=== PATIENT | female | born 1940 | race Caucasian/White ===

== ENCOUNTER → 2016-11-02 | Outpatient (CLI) | payer MEDICARE ==
--- NOTE | 2016-11-03 07:54 | REP ---
Clinical: Right hip pain. Technique: Neutral and frog lateral views of the right hip. Findings: Moderate age-related degenerative changes include joint space narrowing, subtle increased sclerosis to the acetabular roof and contour abnormality along the inferior margin of the acetabulum as well as cortical irregularity involving the greater trochanter. No acute fracture dislocation. No obvious periarticular calcifications. Impression: Moderate age-related arthritic degenerative changes. Signed by Devon Burnham MD 11/02/2016 11:59 A
== END ==
LOC: M ADAMS 11:48
PROVIDERS: ATTEND Physician Assistant Medical
DX: M25.551 Pain in right hip (principal)

== ENCOUNTER → 2017-02-03 | Outpatient (CLI) | payer MEDICARE ==
--- NOTE | 2017-02-03 13:20 | REP ---
Lumbar spine five views: There are no comparisons. There is demineralization. Vertebral body heights are normal. There is mild grade 1 anterolisthesis of L4. There is no spondylolysis. There is degenerative disc disease at every lumbar level. There is a facet osteoarthritis throughout the lumbar spine. The pedicles and sacroiliac articulations are unremarkable. Impression: Demineralization. Multilevel degenerative disc disease. Grade 1 anterolisthesis of L4, likely degenerative. Facet osteoarthritis. Signed by Darrius Asencio MD 02/03/2017 10:12 A
--- NOTE | 2017-02-03 13:20 | REP ---
AP pelvis: Comparison is a right hip series dated 11/02/2016. There is no pelvic fracture. The right and left hip articulations are unremarkable. Sacroiliac articulations are unremarkable. There are pelvic calcifications, nonspecific, phleboliths versus ureteral. The visualized bowel gas pattern is normal. There is degenerative disc disease in the lumbar spine. Impression: Negative AP pelvis. No pelvic or hip fracture. Signed by Darrius Asencio MD 02/03/2017 10:13 A
== END ==
LOC: M ADAMS 08:53
PROVIDERS: ATTEND Nurse Practitioner Family
DX: M25.551 Pain in right hip (principal)

== ENCOUNTER → 2017-08-10 | Outpatient (CLI) | payer MEDICARE, MEDICAID ==
[2017-08-10 12:49] LABS: BASO % 0.5 % (0.0-1.0); EOS # 0.1 10^3/uL (0.0-0.50); EOS % 1.4 % (0.0-3.0); HEMATOCRIT 39.6 % (36.0-47.0); IMMATURE GRANULOCYTE % 0.3 % (0-3.0); LYMPH # 2.5 10^3/uL (1.5-4.5); LYMPH % 28.6 % (24.0-44.0); MEAN CORPUSCULAR HGB CONC 32.8 g/dl (32.0-36.5); MEAN CORPUSCULAR VOLUME 88.2 fl (80.0-96.0); MONO # 0.6 10^3/uL (0.0-0.8); MONO % 6.9 % (0.0-5.0); NEUTROPHILS # 5.4 10^3/uL (1.8-7.7); NEUTROPHILS % 62.3 % (36.0-66.0); PLATELET COUNT, AUTOMATED 236 10^3/uL (150-450); RED BLOOD COUNT 4.49 10^6/uL (4.00-5.40); RED CELL DISTRIBUTION WIDTH 13.5 % (11.5-14.5); WHITE BLOOD COUNT 8.7 10^3/uL (4.0-10.0)
[2017-08-10 13:26] LABS: ANION GAP 8 MEQ/L (8-16); BLOOD UREA NITROGEN 28 MG/DL (7-18); CALCIUM LEVEL 8.6 MG/DL (8.8-10.2); CARBON DIOXIDE LEVEL 29 MEQ/L (21-32); CHLORIDE LEVEL 103 MEQ/L (98-107); CREATININE FOR GFR 1.21 MG/DL (0.55-1.30); GLOMERULAR FILTRATION RATE 46.2 (>39); GLUCOSE, FASTING 119 MG/DL (70-100); POTASSIUM SERUM 4.1 MEQ/L (3.5-5.1); SODIUM LEVEL 140 MEQ/L (136-145)
== END ==
LOC: M LAB 12:00
DX: I65.23 Occlusion and stenosis of bilateral carotid arteries (principal)
CPT/HCPCS: 80048

== ENCOUNTER → 2017-08-17 | Outpatient (CLI) | payer MEDICARE, MEDICAID ==
[~2017-08-17] MED LIST: ISOVUE-370 76% 100ML VIAL (Q9967) As Ordered
== END ==
LOC: M RAD 09:07
DX: I65.23 Occlusion and stenosis of bilateral carotid arteries (principal)
CPT/HCPCS: Q9967

== ENCOUNTER 2017-10-11 08:43 | Inpatient (IN) | payer MEDICARE, MEDICAID ==
[~2017-10-11 08:43] MED LIST changes: +GLYCOPYRROLATE INJ 0.2 MG/ML 2 ML VIAL As Ordered; +HEPARIN SOD (PORCINE) 5000 UNITS/ML VIAL As Ordered; -ISOVUE-370 76% 100ML VIAL (Q9967) As Ordered; +LIDOCAINE 2% INJ 100 MG/5 ML SDV (FOR ANES.) As Ordered; +LIDOCAINE 2% JELLY 30 ML As Ordered; +MIDAZOLAM INJ 2 MG/2 ML VIAL (J2250) As Ordered; +NEOSTIGMINE 10 MG/10 ML VIAL (J2710) As Ordered; +ONDANSETRON 4MG/2ML VIAL (J2405) As Ordered; +PHENYLEPHRINE INJ 10MG/ML VIAL (J2370) As Ordered; +PROPOFOL 200 MG/20 ML VIAL As Ordered; +REMIFENTANIL 1MG 3ML VIAL As Ordered; +ROCURONIUM BROMIDE 50 MG/5 ML VIAL As Ordered; +SUCCINYLCHOLINE 100 MG/5 ML SYRINGE (J0330) As Ordered; +dexameTHASONE 4 MG/ML 1ML VIAL (J1100) As Ordered; +fentaNYL 100 MCG/2 ML INJECTION (J3010) As Ordered
[2017-10-11] MEDS: VITAMIN D 1,000 INTERNATIONAL UNITS TABLET PO (09:00)
[2017-10-11] MEDS: MULTIVITAMINS/MINERALS THERAP 1 TAB PO (09:00)
[2017-10-11 09:15] LABS: HEMATOCRIT 41.2 % (36.0-47.0); HEMOGLOBIN 13.4 g/dl (12.0-15.5); MEAN CORPUSCULAR HEMOGLOBIN 28.6 pg (27.0-33.0); MEAN CORPUSCULAR HGB CONC 32.5 g/dl (32.0-36.5); MEAN CORPUSCULAR VOLUME 87.8 fl (80.0-96.0); PLATELET COUNT, AUTOMATED 251 10^3/uL (150-450); RED BLOOD COUNT 4.69 10^6/uL (4.00-5.40); RED CELL DISTRIBUTION WIDTH 14.2 % (11.5-14.5); WHITE BLOOD COUNT 9.4 10^3/uL (4.0-10.0)
[2017-10-11] MEDS: LR 1,000 ML IV ×2 (09:20→15:00)
[2017-10-11 09:58] LABS: ALBUMIN 3.7 GM/DL (3.2-5.2); ALBUMIN/GLOBULIN RATIO 0.76 (1.00-1.93); ALKALINE PHOSPHATASE 76 U/L (45-117); ALT/SGPT 18 U/L (12-78); ANION GAP 6 MEQ/L (8-16); AST/SGOT 28 U/L (7-37); BILIRUBIN,TOTAL 0.6 MG/DL (0.2-1.0); BLOOD UREA NITROGEN 29 MG/DL (7-18); CALCIUM LEVEL 8.9 MG/DL (8.8-10.2); CARBON DIOXIDE LEVEL 30 MEQ/L (21-32); CHLORIDE LEVEL 103 MEQ/L (98-107); CREATININE FOR GFR 1.26 MG/DL (0.55-1.30); GLUCOSE, FASTING 105 MG/DL (70-100); POTASSIUM SERUM 4.3 MEQ/L (3.5-5.1); SODIUM LEVEL 139 MEQ/L (136-145); TOTAL PROTEIN 8.6 GM/DL (6.4-8.2)
[2017-10-11] MEDS: THROMBIN SOLN 20,000 UNITS KIT As Ordered (12:33)
[2017-10-11] MEDS: HEPARIN SOD (PORCINE) 5000 UNITS/ML VIAL As Ordered ×2 (12:51→14:01)
[2017-10-11] MEDS: GENTAMICIN SULF INJ 80MG/2ML VIAL (J1580) As Ordered (13:56)
[2017-10-11] MEDS: ceFAZolin 1GM INJ (J0690 PER 500MG) As Ordered (13:56)
[2017-10-11] MEDS: LIDOCAINE 1% SDV INJ 30 ML VIAL As Ordered (13:59)
[2017-10-11] MEDS: BUPIVACAINE HCL 0.5% 30 ML VIAL As Ordered (13:59)
[2017-10-11] MEDS ORDERED: MOM 30ML SUSPENSION UDC PO (14:15)
[2017-10-11] MEDS ORDERED: BISACODYL 10 MG SUPP PR (14:15)
[2017-10-11] MEDS ORDERED: ONDANSETRON 4MG/2ML VIAL (J2405) IV ×2 (14:15→15:00)
[2017-10-11] MEDS: CLOPIDOGREL 75 MG TAB PO (14:53)
[2017-10-11] MEDS: ASPIRIN 81 MG ENTERIC TAB PO (14:53)
[2017-10-11] MEDS ORDERED: PERCOCET 5MG/325MG TAB PO (15:00)
[2017-10-11] MEDS ORDERED: fentaNYL 100 MCG/2 ML INJECTION (J3010) IV (15:00)
[2017-10-11] MEDS: ACETAMINOPHEN TAB 650MG DOSE (2X325MG) PO (15:00)
[2017-10-11] MEDS: DOCUSATE SODIUM 100 MG CAP PO (20:58)
[2017-10-11] MEDS: SENOKOT S TAB PO (20:58)
[2017-10-11] MEDS: PRAVASTATIN 20 MG TAB PO (21:01)
[2017-10-11] MEDS: LOSARTAN 50 MG TAB PO (21:01)
[2017-10-12] MEDS: ACETAMINOPHEN TAB 650MG DOSE (2X325MG) PO (00:40)
[2017-10-12] MEDS: CLOPIDOGREL 75 MG TAB PO (08:24)
[2017-10-12] MEDS: VITAMIN D 1,000 INTERNATIONAL UNITS TABLET PO (08:24)
[2017-10-12] MEDS: DOCUSATE SODIUM 100 MG CAP PO (08:24)
[2017-10-12] MEDS: ASPIRIN 81 MG ENTERIC TAB PO (08:24)
[2017-10-12] MEDS: SENOKOT S TAB PO (08:24)
[2017-10-12] MEDS: MULTIVITAMINS/MINERALS THERAP 1 TAB PO (08:24)
== END 2017-10-12 15:40 | disposition home or self-care (01) | DRG 39 ==
LOC: M OR 08:43 → M MS5PR 16:25
PROC: 03CJ0Z6 (ICD-10-PCS; principal; 2017-10-11 10:30)
PROC: 03CL0ZZ Extirpation of Matter from Left Internal Carotid Artery, Open Approach (ICD-10-PCS; 2017-10-11 10:30)
PROC: 03CN0ZZ Extirpation of Matter from Left External Carotid Artery, Open Approach (ICD-10-PCS; 2017-10-11 10:30)
PROC: 03UJ0KZ Supplement Left Common Carotid Artery with Nonautologous Tissue Substitute, Open Approach (ICD-10-PCS; 2017-10-11 10:30)
PROC: 03CY0ZZ Extirpation of Matter from Upper Artery, Open Approach (ICD-10-PCS; 2017-10-11 10:30)
DX: I65.23 Occlusion and stenosis of bilateral carotid arteries (principal); I25.10 Atherosclerotic heart disease of native coronary artery without angina pectoris; E78.00 Pure hypercholesterolemia, unspecified; Z88.8 Allergy status to other drugs, medicaments and biological substances; Z95.5 Presence of coronary angioplasty implant and graft; Z98.51 Tubal ligation status; Z98.41 Cataract extraction status, right eye; Z98.42 Cataract extraction status, left eye; Z87.891 Personal history of nicotine dependence

== ENCOUNTER → 2017-11-09 | Outpatient (CLI) | payer MEDICARE, MEDICAID | LOC: M RAD 16:29 | DX: I65.23 Occlusion and stenosis of bilateral carotid arteries (principal) | CPT/HCPCS: 93880 ==

== ENCOUNTER → 2017-12-07 | Outpatient (CLI) | payer MEDICARE, MEDICAID ==
[2017-12-07 14:23] LABS: BASO # 0.1 10^3/uL (0.0-0.2); BASO % 0.8 % (0.0-1.0); EOS # 0.1 10^3/uL (0.0-0.50); EOS % 1.5 % (0.0-3.0); HEMATOCRIT 38.9 % (36.0-47.0); HEMOGLOBIN 12.6 g/dl (12.0-15.5); IMMATURE GRANULOCYTE % 0.2 % (0-3.0); LYMPH # 2.5 10^3/uL (1.5-4.5); LYMPH % 27.8 % (24.0-44.0); MEAN CORPUSCULAR HEMOGLOBIN 28.8 pg (27.0-33.0); MEAN CORPUSCULAR HGB CONC 32.4 g/dl (32.0-36.5); MEAN CORPUSCULAR VOLUME 88.8 fl (80.0-96.0); MONO # 0.7 10^3/uL (0.0-0.8); MONO % 7.7 % (0.0-5.0); NEUTROPHILS # 5.5 10^3/uL (1.8-7.7); PLATELET COUNT, AUTOMATED 237 10^3/uL (150-450); RED BLOOD COUNT 4.38 10^6/uL (4.00-5.40); WHITE BLOOD COUNT 8.9 10^3/uL (4.0-10.0)
[2017-12-07 14:38] LABS: ANION GAP 5 MEQ/L (8-16); BLOOD UREA NITROGEN 24 MG/DL (7-18); CALCIUM LEVEL 8.6 MG/DL (8.8-10.2); CARBON DIOXIDE LEVEL 30 MEQ/L (21-32); CHLORIDE LEVEL 102 MEQ/L (98-107); GLOMERULAR FILTRATION RATE 46.5 (>39); GLUCOSE, FASTING 90 MG/DL (70-100); POTASSIUM SERUM 4.8 MEQ/L (3.5-5.1); SODIUM LEVEL 137 MEQ/L (136-145)
== END ==
LOC: M LAB 13:17
DX: I65.23 Occlusion and stenosis of bilateral carotid arteries (principal)
CPT/HCPCS: 80048

== ENCOUNTER 2018-01-15 00:10 | Emergency (ER) | payer MEDICARE, MEDICAID | END 2018-01-15 01:22 | disposition home or self-care (01) | LOC: M ED 00:10 | DX: I10 Essential (primary) hypertension (principal); E78.79 Other disorders of bile acid and cholesterol metabolism; Z95.5 Presence of coronary angioplasty implant and graft; Z87.891 Personal history of nicotine dependence; Z79.01 Long term (current) use of anticoagulants; Z79.899 Other long term (current) drug therapy; Z79.82 Long term (current) use of aspirin | CPT/HCPCS: 99284 ==

== ENCOUNTER 2018-02-03 09:45 | Inpatient (IN) | payer MEDICARE, MEDICAID ==
[~2018-02-03 09:45] MED LIST changes: -GLYCOPYRROLATE INJ 0.2 MG/ML 2 ML VIAL As Ordered; -HEPARIN SOD (PORCINE) 5000 UNITS/ML VIAL As Ordered; +LIDOCAINE 1% MDV 20ML VIAL SQ; -LIDOCAINE 2% INJ 100 MG/5 ML SDV (FOR ANES.) As Ordered; -LIDOCAINE 2% JELLY 30 ML As Ordered; -MIDAZOLAM INJ 2 MG/2 ML VIAL (J2250) As Ordered; -NEOSTIGMINE 10 MG/10 ML VIAL (J2710) As Ordered; -ONDANSETRON 4MG/2ML VIAL (J2405) As Ordered; -PHENYLEPHRINE INJ 10MG/ML VIAL (J2370) As Ordered; -PROPOFOL 200 MG/20 ML VIAL As Ordered; -REMIFENTANIL 1MG 3ML VIAL As Ordered; -ROCURONIUM BROMIDE 50 MG/5 ML VIAL As Ordered; -SUCCINYLCHOLINE 100 MG/5 ML SYRINGE (J0330) As Ordered; -dexameTHASONE 4 MG/ML 1ML VIAL (J1100) As Ordered; -fentaNYL 100 MCG/2 ML INJECTION (J3010) As Ordered
[2018-02-03] MEDS: LR 1,000 ML IV ×2 (10:41→19:15)
[2018-02-03] MEDS ORDERED: LIDOCAINE 2% INJ 100 MG/5 ML SDV (FOR ANES.) As Ordered ×2 (12:26)
[2018-02-03] MEDS ORDERED: fentaNYL 100 MCG/2 ML INJECTION (J3010) As Ordered (12:26)
[2018-02-03] MEDS ORDERED: SUGAMMADEX SODIUM 500 MG/5 ML VIAL (BRIDION) As Ordered (12:26)
[2018-02-03] MEDS ORDERED: LABETALOL HCL 100 MG/20 ML VIAL As Ordered (12:26)
[2018-02-03] MEDS ORDERED: ONDANSETRON 4MG/2ML VIAL (J2405) As Ordered (12:26)
[2018-02-03] MEDS ORDERED: ROCURONIUM BROMIDE 50 MG/5 ML VIAL As Ordered (12:26)
[2018-02-03] MEDS ORDERED: MIDAZOLAM INJ 2 MG/2 ML VIAL (J2250) As Ordered (12:26)
[2018-02-03] MEDS ORDERED: PROPOFOL 200 MG/20 ML VIAL As Ordered (12:26)
[2018-02-03] MEDS ORDERED: HEPARIN SOD (PORCINE) 5000 UNITS/ML VIAL As Ordered (16:12)
[2018-02-03] MEDS ORDERED: REMIFENTANIL 1MG 3ML VIAL As Ordered ×2 (16:16)
[2018-02-03] MEDS ORDERED: dexameTHASONE 4 MG/ML 1ML VIAL (J1100) As Ordered ×2 (17:00)
[2018-02-03] MEDS: CLINDAMYCIN 600 MG/50 ML PREMIX BAG As Ordered (17:08)
[2018-02-03] MEDS: THROMBIN SOLN 20,000 UNITS KIT As Ordered (17:08)
[2018-02-03] MEDS ORDERED: ePHEDrine SULFATE 25 MG/5 ML(5MG/ML) SYRINGE As Ordered (17:12)
[2018-02-03] MEDS ORDERED: GLYCOPYRROLATE INJ 0.2 MG/ML 2 ML VIAL As Ordered (17:13)
[2018-02-03] MEDS ORDERED: PHENYLephrine HCL 500 MCG/5 ML (100MCG/ML) SYRINGE (J2370) As Ordered (17:23)
[2018-02-03] MEDS: BUPIVACAINE HCL 0.5% 30 ML VIAL As Ordered (18:30)
[2018-02-03] MEDS: LIDOCAINE 1% SDV INJ 30 ML VIAL As Ordered (18:30)
[2018-02-03] MEDS ORDERED: METOCLOPRAMIDE INJ 10MG/2ML VIAL (J2765) IV (19:15)
[2018-02-03] MEDS ORDERED: ONDANSETRON 4MG/2ML VIAL (J2405) IV (19:15)
[2018-02-03] MEDS ORDERED: MEPERIDINE INJ 25 MG/ML VIAL (J2175) IV (19:15)
[2018-02-03] MEDS ORDERED: PERCOCET 5MG/325MG TAB PO (19:15)
[2018-02-03] MEDS ORDERED: fentaNYL 100 MCG/2 ML INJECTION (J3010) IV (19:15)
[2018-02-03] MEDS ORDERED: MOM 30ML SUSPENSION UDC PO (19:30)
[2018-02-03] MEDS ORDERED: ALBUTEROL 90 MCG/ACT 8GM HFA INHALER INH (19:30)
[2018-02-03] MEDS ORDERED: BISACODYL 10 MG SUPP PR (19:30)
[2018-02-03] MEDS: ONDANSETRON 4MG/2ML VIAL (J2405) IV (22:02)
[2018-02-03] MEDS: NORCO, ANEXSIA 5/325MG TABLET (HYDROcodone/ACETAMINOPHEN) PO (22:24)
[2018-02-03] MEDS: LOSARTAN 50 MG TAB PO (22:28)
[2018-02-03] MEDS: SENOKOT S TAB PO (23:16)
[2018-02-03] MEDS: PRAVASTATIN 20 MG TAB PO (23:16)
[2018-02-03] MEDS: DOCUSATE SODIUM 100 MG CAP PO (23:17)
[2018-02-04] MEDS: SENOKOT S TAB PO ×3 (00:48→20:49)
[2018-02-04] MEDS: DOCUSATE SODIUM 100 MG CAP PO ×3 (00:48→20:49)
[2018-02-04] MEDS: MORPHINE 4 MG/ML 1ML VIAL/SYRINGE (J2270) IV (00:56)
[2018-02-04] MEDS: MULTIVITAMINS/MINERALS THERAP 1 TAB PO (09:36)
[2018-02-04] MEDS: VITAMIN D 1,000 INTERNATIONAL UNITS TABLET PO (09:37)
[2018-02-04] MEDS: CLOPIDOGREL 75 MG TAB PO (09:37)
[2018-02-04] MEDS: ASPIRIN 81 MG ENTERIC TAB PO (09:37)
[2018-02-04] MEDS: NORCO, ANEXSIA 5/325MG TABLET (HYDROcodone/ACETAMINOPHEN) PO ×2 (12:44→20:51)
[2018-02-04] MEDS: cloNIDine 0.1 MG TAB PO ×2 (17:24→18:42)
[2018-02-04] MEDS: PRAVASTATIN 20 MG TAB PO (20:49)
[2018-02-04] MEDS: LOSARTAN 50 MG TAB PO (20:53)
[2018-02-05] MEDS: NORCO, ANEXSIA 5/325MG TABLET (HYDROcodone/ACETAMINOPHEN) PO (00:51)
[2018-02-05] MEDS: VITAMIN D 1,000 INTERNATIONAL UNITS TABLET PO (08:35)
[2018-02-05] MEDS: ASPIRIN 81 MG ENTERIC TAB PO (08:35)
[2018-02-05] MEDS: DOCUSATE SODIUM 100 MG CAP PO (08:36)
[2018-02-05] MEDS: MULTIVITAMINS/MINERALS THERAP 1 TAB PO (08:36)
[2018-02-05] MEDS: SENOKOT S TAB PO (08:36)
[2018-02-05] MEDS: CLOPIDOGREL 75 MG TAB PO (08:36)
== END 2018-02-05 15:24 | disposition home or self-care (01) | DRG 39 ==
LOC: M OR 09:45 → M PCU 19:57
PROC: 03CH0Z6 (ICD-10-PCS; principal; 2018-02-03 12:00)
PROC: 03CM0Z6 (ICD-10-PCS; 2018-02-03 12:00)
PROC: 03CK0Z6 (ICD-10-PCS; 2018-02-03 12:00)
PROC: 03UH0KZ Supplement Right Common Carotid Artery with Nonautologous Tissue Substitute, Open Approach (ICD-10-PCS; 2018-02-03 12:00)
DX: I65.21 Occlusion and stenosis of right carotid artery (principal); I25.10 Atherosclerotic heart disease of native coronary artery without angina pectoris; I10 Essential (primary) hypertension; J30.9 Allergic rhinitis, unspecified; G47.00 Insomnia, unspecified; E78.5 Hyperlipidemia, unspecified; I73.9 Peripheral vascular disease, unspecified; E78.00 Pure hypercholesterolemia, unspecified; M19.90 Unspecified osteoarthritis, unspecified site; J44.9 Chronic obstructive pulmonary disease, unspecified; I08.3 Combined rheumatic disorders of mitral, aortic and tricuspid valves; Z79.82 Long term (current) use of aspirin; Z79.899 Other long term (current) drug therapy; Z88.0 Allergy status to penicillin; Z88.5 Allergy status to narcotic agent; Z87.891 Personal history of nicotine dependence; Z98.62 Peripheral vascular angioplasty status; Z98.51 Tubal ligation status; Z78.0 Asymptomatic menopausal state; Z95.1 Presence of aortocoronary bypass graft

== ENCOUNTER 2018-02-10 21:24 | Emergency (ER) | payer MEDICARE, MEDICAID ==
[2018-02-10 23:17] LABS: BASO # 0.1 10^3/uL (0.0-0.2); BASO % 0.8 % (0.0-1.0); EOS # 0.2 10^3/uL (0.0-0.50); EOS % 1.7 % (0.0-3.0); HEMATOCRIT 33.7 % (36.0-47.0); HEMOGLOBIN 11.1 g/dl (12.0-15.5); IMMATURE GRANULOCYTE % 0.5 % (0-3.0); LYMPH # 2.6 10^3/uL (1.5-4.5); LYMPH % 25.7 % (24.0-44.0); MEAN CORPUSCULAR HEMOGLOBIN 28.8 pg (27.0-33.0); MEAN CORPUSCULAR HGB CONC 32.9 g/dl (32.0-36.5); MEAN CORPUSCULAR VOLUME 87.5 fl (80.0-96.0); MONO % 10.2 % (0.0-5.0); NEUTROPHILS # 6.2 10^3/uL (1.8-7.7); NEUTROPHILS % 61.1 % (36.0-66.0); PLATELET COUNT, AUTOMATED 254 10^3/uL (150-450); RED BLOOD COUNT 3.85 10^6/uL (4.00-5.40); RED CELL DISTRIBUTION WIDTH 14.6 % (11.5-14.5); WHITE BLOOD COUNT 10.2 10^3/uL (4.0-10.0)
[2018-02-10 23:27] LABS: INR 1.05; PROTHROMBIN TIME 13.8 SECONDS (12.1-14.4)
[2018-02-10 23:29] LABS: BEDSIDE GLUCOSE 112 MG/DL (83-110)
[2018-02-10 23:39] LABS: LACTIC ACID SEPSIS PROTOCOL 0.7 MMOL/L (0.4-2.0)
[2018-02-10 23:48] LABS: ANION GAP 8 MEQ/L (8-16); BLOOD UREA NITROGEN 26 MG/DL (7-18); CALCIUM LEVEL 8.9 MG/DL (8.8-10.2); CARBON DIOXIDE LEVEL 28 MEQ/L (21-32); CHLORIDE LEVEL 98 MEQ/L (98-107); CPK CREATINE PHOSPHOKINASE 69 U/L (26-192); CREATININE FOR GFR 1.34 MG/DL (0.55-1.30); GLOMERULAR FILTRATION RATE 40.9 (>39); GLUCOSE, FASTING 115 MG/DL (70-100); MAGNESIUM LEVEL 2.2 MG/DL (1.8-2.4); POTASSIUM SERUM 4.3 MEQ/L (3.5-5.1); SODIUM LEVEL 134 MEQ/L (136-145); TROPONIN I < 0.02 NG/ML (< 0.10)
[2018-02-10 23:54] LABS: CK-MB VALUE MASS < 1.0 NG/ML (<3.6); FREE T4 1.06 NG/DL (0.76-1.46); MB/CK RELATIVE INDEX 1.44 (< OR =4)
== END 2018-02-11 00:16 | disposition home or self-care (01) ==
LOC: M ED 02-11 00:16
DX: I97.618 Postprocedural hemorrhage of a circulatory system organ or structure following other circulatory system procedure (principal); I10 Essential (primary) hypertension; I25.10 Atherosclerotic heart disease of native coronary artery without angina pectoris; J44.9 Chronic obstructive pulmonary disease, unspecified; F17.200 Nicotine dependence, unspecified, uncomplicated
CPT/HCPCS: 93880

== ENCOUNTER → 2018-02-24 | Outpatient (CLI) | payer MEDICARE, MEDICAID | LOC: M RAD 09:32 | DX: I65.23 Occlusion and stenosis of bilateral carotid arteries (principal) | CPT/HCPCS: 93880 ==

== ENCOUNTER → 2018-06-24 | Outpatient (REF) | payer MEDICARE, MEDICAID ==
[~2018-06-24] MED LIST changes: +ASPI1TAB PO; +CALC1TAB21 PO; -LIDOCAINE 1% MDV 20ML VIAL SQ; +LOSA50TA88 PO; +MULT1TAB10 PO; +PLAV1TAB2 PO; +PRAV40TA2 PO; +VENTAER; +VITA100067 PO
== END ==
LOC: M LAB REF 14:17
PROVIDERS: ATTEND Physician Assistant
DX: N39.0 Urinary tract infection, site not specified (principal)

== ENCOUNTER → 2018-12-12 | Outpatient (CLI) | payer MEDICARE ==
[~2018-12-12] MED LIST changes: -ASPI1TAB PO; +ASPI81TA26 PO
--- NOTE | 2018-12-12 15:38 | REP ---
Bilateral lower extremity arterial duplex ultrasound: Right lower extremity: Right brachial artery peak systole: 100 mmHg. Right dorsalis pedis peak systole: 80 ml millimeters of mercury. The right MERCHANDISING MANAGER: Not obtainable MIKAYLA: 0.8 Peak Systolic Phasicity Velocity DIRECTOR OF MANAGED SERVICES the 110 biphasic Profunda 51.1 monophasic SFA prox 111 biphasic SFA mid 56.5 biphasic SFA dist 57.5 biphasic Pop 34 .8 biphasic SHUKRI prox 46.7 monophasic Tib/P tr 42.9 monophasic the MERCHANDISING MANAGER pr -- -- MERCHANDISING MANAGER dst 50.6 biphasic SHUKRI dst -- - Left lower extremity: Left brachial artery peak systole 90 mmHg. Left dorsalis pedis: Unobtainable MERCHANDISING MANAGER colon and not obtainable MIKAYLA: Not obtainable. Peak Systolic Phasicity Velocity DIRECTOR OF MANAGED SERVICES 104 monophasic Profunda -- -- SFA prox 42.3 monophasic SFA mid 46.6 monophasic SFA dist 28.2 monophasic Pop 17.2 monophasic SHUKRI prox 20.0 monophasic Tib/P tr 18.5 at monophasic MERCHANDISING MANAGER pr 13.9 monophasic MERCHANDISING MANAGER dst 15.7 monophasic SHUKRI dst 15.3 monophasic On the right. jennifer is significant atheromatous plaque in the CF eight, profunda and proximal SFA. The distal the proximal and distal profunda is occluded. On the left, they is significant atheromatous plaque in the distal aorta extending into the internal or external iliac arteries and into the common femoral artery and superficial femoral artery. The left profunda artery is occluded. Fatty arrhythmias identified on the Doppler waveforms. Electronically Signed by Darrius Asencio MD 12/12/2018 03:30 P
== END ==
LOC: M RAD 12:24
PROVIDERS: ATTEND Physician Assistant
DX: I73.9 Peripheral vascular disease, unspecified (principal)

== ENCOUNTER → 2019-03-09 | Outpatient (CLI) | payer MEDICARE, OTHER ==
--- NOTE | 2019-03-09 10:06 | REP ---
LUMBOSACRAL SPINE: Five views of the lumbosacral spine performed. There is no compression fracture. No spondylosis is seen. However there is mild anterior spondylolisthesis of L4 on L5 which appears to be due to posterior facet arthropathy. There is moderate diffuse spurring. There is mild to moderate diffuse disc space narrowing with subchondral narrowing with subchondral sclerosis, most significantly at the L2-3 and L5-S1 levels. There is moderate sclerosis and spurring at the posterior facets of L3-4, L4-5, and L5-S1. The posterior elements appear intact. There is slight curvature toward the left. IMPRESSION: Diffuse degenerative changes with no compression fracture. Electronically Signed by Darrius Beltran MD 03/09/2019 06:29 P
== END ==
LOC: M ADAMS 09:11
PROVIDERS: ATTEND Physician Assistant Medical
DX: M51.36 Other intervertebral disc degeneration, lumbar region (principal); M54.5 Low back pain
CPT/HCPCS: 72110; G0463

== ENCOUNTER → 2019-04-11 | Outpatient (REF) | payer MEDICARE, MEDICAID, BC ==
[2019-04-11 20:40] LABS: CALCIUM LEVEL 9.2 MG/DL (8.8-10.2); CREATININE FOR GFR 1.4 MG/DL (0.55-1.30); GLOMERULAR FILTRATION RATE 38.8 (>39); POTASSIUM SERUM 4.6 MEQ/L (3.5-5.1)
== END ==
LOC: M LABDRWAD 19:17
PROVIDERS: ATTEND Internal Medicine Cardiovascular Disease
DX: I10 Essential (primary) hypertension (principal)
CPT/HCPCS: 36415; 80048; G0463

== ENCOUNTER → 2019-04-19 | Outpatient (REF) | payer MEDICARE, BC ==
[2019-04-19 19:43] LABS: BASO # 0.1 10^3/uL (0.0-0.2); EOS # 0.1 10^3/uL (0.0-0.5); EOS % 1.2 % (0.0-3.0); HEMOGLOBIN 12.9 g/dl (12.0-15.5); LYMPH # 2.4 10^3/uL (1.5-5.0); MEAN CORPUSCULAR HEMOGLOBIN 28.7 pg (27.0-33.0); MEAN CORPUSCULAR HGB CONC 33.9 g/dl (32.0-36.5); MEAN CORPUSCULAR VOLUME 84.4 fl (80.0-96.0); MONO # 0.7 10^3/uL (0.0-0.8); MONO % 9.1 % (0.0-5.0); NEUTROPHILS # 4.5 10^3/uL (1.5-8.5); NEUTROPHILS % 57.6 % (36.0-66.0); PLATELET COUNT, AUTOMATED 291 10^3/uL (150-450); WHITE BLOOD COUNT 7.8 10^3/uL (4.0-10.0)
[2019-04-19 20:00] LABS: ALBUMIN 3.9 GM/DL (3.2-5.2); ALT/SGPT 22 U/L (12-78); BILIRUBIN,TOTAL 0.7 MG/DL (0.2-1.0); BLOOD UREA NITROGEN 17 MG/DL (7-18); CALCIUM LEVEL 9.3 MG/DL (8.8-10.2); CARBON DIOXIDE LEVEL 30 MEQ/L (21-32); CHLORIDE LEVEL 80 MEQ/L (98-107); CK-MB VALUE MASS 4.1 NG/ML (<3.6); CPK CREATINE PHOSPHOKINASE 259 U/L (26-192); CREATININE FOR GFR 1.17 MG/DL (0.55-1.30); FREE T4 1.16 NG/DL (0.76-1.46); GLOMERULAR FILTRATION RATE 47.7 (>39); GLUCOSE, FASTING 86 MG/DL (70-100); MB/CK RELATIVE INDEX 1.58 (< OR =4); POTASSIUM SERUM 4.4 MEQ/L (3.5-5.1); SODIUM LEVEL 121 MEQ/L (136-145); TOTAL PROTEIN 8.2 GM/DL (6.4-8.2); TROPONIN I < 0.02 NG/ML (< 0.10)
== END ==
LOC: M SFHCADAM 16:04
PROVIDERS: ATTEND Family Medicine
DX: R63.0 Anorexia (principal); R53.81 Other malaise

== ENCOUNTER → 2019-04-20 | Outpatient (REF) | payer MEDICARE, BC ==
[2019-04-20 16:03] LABS: CALCIUM LEVEL 9.2 MG/DL (8.8-10.2); CREATININE FOR GFR 1.24 MG/DL (0.55-1.30); GLOMERULAR FILTRATION RATE 44.7 (>39)
== END ==
LOC: M SFHCADAM 11:41
PROVIDERS: ATTEND Family Medicine
DX: E87.1 Hypo-osmolality and hyponatremia (principal)

== ENCOUNTER → 2019-04-26 | Outpatient (REF) | payer MEDICARE, BC ==
[2019-04-26 13:01] LABS: CALCIUM LEVEL 9.2 MG/DL (8.8-10.2); CREATININE FOR GFR 1.08 MG/DL (0.55-1.30); GLOMERULAR FILTRATION RATE 52.4 (>39)
== END ==
LOC: M SFHCADAM 09:20
PROVIDERS: ATTEND Family Medicine
DX: E87.1 Hypo-osmolality and hyponatremia (principal)

== ENCOUNTER → 2019-08-15 | Outpatient (REF) | payer MEDICARE ==
[2019-08-15 13:05] LABS: APPEARANCE, URINE CLEAR (CLEAR); BACTERIA, URINE AUTO NEGATIVE (NEGATIVE); BILIRUBIN, URINE AUTO NEGATIVE (NEGATIVE); BLOOD, URINE BLOOD NEGATIVE (NEGATIVE); COLOR, URINE STRAW (YELLOW); GLUCOSE, URINE (UA) AUTO NEGATIVE (NEGATIVE); KETONE, URINE AUTO NEGATIVE (NEGATIVE); LEUKOCYTE ESTERASE, URINE AUTO NEGATIVE (NEGATIVE); NITRITE, URINE AUTO NEGATIVE (NEGATIVE); PROTEIN, URINE AUTO NEGATIVE (NEGATIVE); RBC, URINE AUTO 1 /HPF (0-3); SPECIFIC GRAVITY URINE AUTO 1.006 (1.002-1.035); SQUAMOUS EPITHELIAL CELL UR AU 0 /HPF (0-6); UROBILINOGEN, URINE AUTO 0.2 mg/dL (0.0-2.0); WBC, URINE AUTO 1 /HPF (0-3)
== END ==
LOC: M SFHCADAM 09:07
PROVIDERS: ATTEND Family Medicine
DX: M54.5 Low back pain (principal); R82.998 Other abnormal findings in urine

== ENCOUNTER → 2019-12-27 | Outpatient (REF) | payer MEDICARE | LOC: M SFHCADAM 16:17 | PROVIDERS: ATTEND Family Medicine | DX: R35.0 Frequency of micturition (principal) ==

== ENCOUNTER 2020-01-01 20:50 | Emergency (ER) | payer MEDICARE ==
[~2020-01-01] VITALS: Ht 162.6 cm; Wt 77.1 kg
[2020-01-01] MEDS ORDERED: EZET10TA21 (21:05)
[2020-01-01 22:16] LABS: BASO # 0.1 10^3/uL (0.0-0.2); BASO % 0.6 % (0.0-1.0); EOS # 0.4 10^3/uL (0.0-0.5); EOS % 4.6 % (0.0-3.0); HEMATOCRIT 39.6 % (36.0-47.0); HEMOGLOBIN 12.9 g/dl (12.0-15.5); LYMPH # 2.4 10^3/uL (1.5-5.0); LYMPH % 26.1 % (24.0-44.0); MEAN CORPUSCULAR HEMOGLOBIN 28.7 pg (27.0-33.0); MEAN CORPUSCULAR HGB CONC 32.6 g/dl (32.0-36.5); MONO # 0.9 10^3/uL (0.0-0.8); MONO % 10.3 % (0.0-5.0); NEUTROPHILS # 5.3 10^3/uL (1.5-8.5); PLATELET COUNT, AUTOMATED 311 10^3/uL (150-450); WHITE BLOOD COUNT 9.1 10^3/uL (4.0-10.0)
[2020-01-01 22:27] LABS: INR 1.05; PROTHROMBIN TIME 13.4 SECONDS (11.8-14.0)
[2020-01-01] MEDS: GASTROGRAFIN SOLUTION 30ML PO SCH ×2 (22:33→23:01)
[2020-01-01 22:40] LABS: ALBUMIN 3.5 GM/DL (3.2-5.2); BILIRUBIN,DIRECT 0.1 MG/DL (0.0-0.2); BILIRUBIN,TOTAL 0.3 MG/DL (0.2-1.0); CALCIUM LEVEL 8.8 MG/DL (8.8-10.2); CREATININE FOR GFR 1.18 MG/DL (0.55-1.30); GLOMERULAR FILTRATION RATE 47.2 (>39); POTASSIUM SERUM 4.5 MEQ/L (3.5-5.1); TOTAL PROTEIN 8.5 GM/DL (6.4-8.2)
[2020-01-02] MEDS ORDERED: ISOVUE-370 76% 100ML VIAL As Ordered ONE
--- NOTE | 2020-01-02 00:54 | REPVR ---
PROCEDURE INFORMATION: Exam: CT Abdomen And Pelvis With Contrast Exam date and time: 01/01/2020 10:10 PM Age: 79 years old Clinical indication: Pain; Other: Rectal; Additional info: Rectal pain, rectal bleeding TECHNIQUE: Imaging protocol: Computed tomography of the abdomen and pelvis with intravenous contrast. Radiation optimization: All CT scans at this facility use at least one of these dose optimization techniques: automated exposure control; mA and/or kV adjustment per patient size (includes targeted exams where dose is matched to clinical indication); or iterative reconstruction. Contrast material: ISO; Contrast volume: 100 ml; Contrast route: INTRAVENOUS (IV); Other contrast: Oral, ggraphin, 600; COMPARISON: DX PELVIS COMPLETE 02/03/2017 8:57 AM FINDINGS: Lungs: Interstitial thickening in the lung bases. Liver: Normal. No mass. Gallbladder and bile ducts: Normal. No calcified stones. No ductal dilation. Pancreas: Normal. No ductal dilation. Spleen: Normal. No splenomegaly. Adrenals: Normal. No mass. Kidneys and ureters: Multiple cysts in the kidneys. No solid masses or calculi. No hydronephrosis. Stomach and bowel: There is colonic diverticulosis. There is stranding and edema around an inflamed diverticulum in the lower sigmoid colon. No bowel obstruction. No inflammatory changes elsewhere in the colon. The small bowel is unremarkable. Appendix: No evidence of appendicitis. Intraperitoneal space: No abscess or bowel perforation. Vasculature: Advanced aortoiliac atherosclerotic disease. No aortic aneurysm or dissection. 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 Severe stenosis of the left common iliac artery bifurcation with occlusion of the left internal iliac artery. Lymph nodes: Unremarkable. No enlarged lymph nodes. Bladder: Mild urinary bladder wall thickening suggesting cystitis. No bladder masses or calculi. Reproductive: Unremarkable as visualized. Bones/joints: There are advanced degenerative changes in the spine and pelvis. Soft tissues: Unremarkable. IMPRESSION: 1. Sigmoid diverticulitis. No diverticular abscess, perforation, or bowel obstruction. 2. Urinary bladder wall thickening suggesting cystitis. 3. Interstitial changes in the lung bases may be due to chronic interstitial lung disease or interstitial edema. 4. 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 Electronically signed by: Theron Castano On 01/02/2020 00:53:46 AM
[2020-01-02 01:35] VITALS: BP 148/84
--- NOTE | 2020-01-02 13:13 | ED PDOC ---
Post-Departure Follow-Up conrad ramirez faxed formal report of ct abd/p for fu Tram Bird MD Jan 02, 2020 13:13
== END 2020-01-02 01:49 | disposition home or self-care (01) ==
LOC: M ED 20:50
DX: K62.5 Hemorrhage of anus and rectum (principal); I10 Essential (primary) hypertension; N18.3 Chronic kidney disease, stage 3 (moderate); E78.9 Disorder of lipoprotein metabolism, unspecified; Z95.1 Presence of aortocoronary bypass graft; Z79.899 Other long term (current) drug therapy; Z79.82 Long term (current) use of aspirin; Z79.01 Long term (current) use of anticoagulants; Z88.0 Allergy status to penicillin; Z87.891 Personal history of nicotine dependence
CPT/HCPCS: 74177; 80047; 80048; 80076; 83690; 85025; 85610; 86850; 86900; 86901; 93041; 99284; Q9963; Q9967

== ENCOUNTER 2020-04-15 08:35 | Inpatient (IN) | payer MEDICARE ==
[~2020-04-15] VITALS: Ht 162.6 cm; Wt 72.0 kg
[~2020-04-15 08:35] MED LIST changes: +EZET10TA21
[2020-04-15 09:26] LABS: HEMATOCRIT 38.7 % (36.0-47.0); HEMOGLOBIN 12.3 g/dl (12.0-15.5); MEAN CORPUSCULAR HEMOGLOBIN 27.6 pg (27.0-33.0); MEAN CORPUSCULAR HGB CONC 31.8 g/dl (32.0-36.5); PLATELET COUNT, AUTOMATED 239 10^3/uL (150-450); RED BLOOD COUNT 4.45 10^6/uL (4.00-5.40); WHITE BLOOD COUNT 12.5 10^3/uL (4.0-10.0)
[2020-04-15] MEDS ORDERED: fentaNYL 100 MCG/2 ML INJECTION (J3010) As Ordered ONE ×2 (09:27→11:25)
[2020-04-15] MEDS ORDERED: LIDOCAINE 1% MDV 20ML VIAL As Ordered ONE ×2 (09:28→11:03)
[2020-04-15] MEDS ORDERED: ISOVUE-300 61% 50ML VIAL As Ordered ONE (09:28)
[2020-04-15] MEDS ORDERED: MIDAZOLAM INJ 2MG/2ML VIAL (J2250 PER 1MG) As Ordered ONE ×3 (09:28→13:37)
[2020-04-15 09:54] LABS: CALCIUM LEVEL 8.9 MG/DL (8.8-10.2); CREATININE FOR GFR 1.02 MG/DL (0.55-1.30); GLOMERULAR FILTRATION RATE 55.8 (>39)
[2020-04-15] MEDS ORDERED: VANCOMYCIN 500MG/10ML VIAL As Ordered ONE (11:02)
[2020-04-15] MEDS ORDERED: LIDOCAINE W/EPINEPHRINE 1% 20ML VIAL As Ordered ONE (11:15)
[2020-04-15] MEDS ORDERED: HEPARIN 25,000 UNITS/250 ML D5W BAG (100 UNITS/ML) (J1644 PER 1000UNITS) As Ordered ONE (13:08)
[2020-04-15] MEDS ORDERED: HEPARIN SOD (PORCINE) 5000UNITS/ML 1ML VIAL/SYRINGE As Ordered ONE ×3 (13:08→14:10)
[2020-04-15] MEDS ORDERED: NS 1,000 ML IV SCH (13:21)
[2020-04-15] MEDS ORDERED: fentaNYL 250 MCG/5 ML INJECTION (J3010) As Ordered ONE (13:37)
[2020-04-15] MEDS ORDERED: dexameTHASONE 4 MG/ML 1ML VIAL (J1100 PER 1MG) As Ordered ONE (13:38)
[2020-04-15] MEDS ORDERED: propofoL 200 MG/20 ML VIAL As Ordered ONE ×2 (13:38→19:28)
[2020-04-15] MEDS ORDERED: LIDOCAINE 2% 100MG/5ML SDV (FOR ANES.) As Ordered ONE (13:38)
[2020-04-15] MEDS ORDERED: ROCURONIUM BROMIDE 50 MG/5 ML VIAL As Ordered ONE (13:38)
[2020-04-15] MEDS ORDERED: ONDANSETRON 4MG/2ML VIAL As Ordered ONE (13:38)
[2020-04-15] MEDS ORDERED: HEPARIN SOD (PORCINE) 5000UNITS/ML 1ML VIAL/SYRINGE IV ONE (13:45)
[2020-04-15] MEDS ORDERED: HEPARIN DRIP 25,000 UNITS in IV 1 EA IV SCH ×4 (13:45)
[2020-04-15] MEDS ORDERED: THROMBIN SOLN 5,000 UNITS VIAL As Ordered ONE (14:09)
[2020-04-15] MEDS ORDERED: BUPIVACAINE/EPIN 0.5% 30 ML VIAL As Ordered ONE (14:10)
[2020-04-15] MEDS ORDERED: hydrALAZINE 20MG/ML 1ML VIAL (J0360 PER 20MG) As Ordered ONE (15:22)
[2020-04-15] MEDS ORDERED: hydrALAZINE 20MG/ML 1ML VIAL (J0360 PER 20MG) IV ONE (15:30)
[2020-04-15] MEDS ORDERED: CLINDAMYCIN 600 MG/50 ML PREMIX BAG As Ordered ONE (17:31)
[2020-04-15] MEDS ORDERED: ePHEDrine SULFATE 25 MG/5 ML(5MG/ML) SYRINGE As Ordered ONE (17:38)
[2020-04-15] MEDS ORDERED: PHENYLephrine HCL 500 MCG/5 ML (100MCG/ML) SYRINGE (J2370) As Ordered ONE (17:43)
[2020-04-15] MEDS ORDERED: ACETAMINOPHEN 1000MG 100ML IV BTL (OFIRMEV) (J0131 PER 10MG) As Ordered ONE (18:56)
--- NOTE | 2020-04-15 20:24 | ROOPDOC ---
[facility] Report Of Operation Report of Operation DATE OF PROCEDURE: 04/15/20 PREPROCEDURE DIAGNOSES: Atherosclerosis the [place] arteries with worsening ischemia right lower extremity POSTPROCEDURE DIAGNOSES: Same PROCEDURE: Right femoral endarterectomy with vein patch angioplasty SURGEON: Rosie Chavez MD ANESTHESIA: Monitored anesthesia care and local INDICATION FOR PROCEDURE: Very pleasant 79-year-old patient with severe atherosclerosis of the [place] arteries primarily involving the distal aortic, common iliac arteries, external iliac arteries, common femoral arteries, and proximal superficial femoral arteries bilaterally. She underwent an arteriogram today with attempt to cross the chronic total occlusion in the left iliac system, which was unsuccessful and aborted. We also attempted to stent the right iliac system, but were only able to place proximal balloon expandable stent due to disruption of the balloon requiring a cut down in the right groin to safely remove the balloon and sheath under direct visualization. Following this, in recovery, the patient had diminished PT and DP signals compared to preop. I suspect his potential embolization versus thrombosis of the near occlusive will keep calcified plaque in the femoral vessel after direct repair the arteriotomy. We started a heparin drip postprocedure, no significant improvement was noted. I felt the safest thing is to bring the patient to the operating room and perform a femoral endarterectomy and possible thromboembolectomy if needed. Risks benefits and alternatives were explained to the patient's agreeable to proceed. Informed consent was obtained. REPORT OF OPERATION: Patient was brought the operating room in stable condition. Monitored anesthesia care and antibiotics were administered without complication. Her bilateral groins in the entire right lower extremity were prepped and draped in a sterile fashion. Ioban was placed over the skin. A timeout was performed. Presley from the right groin incision were removed. Local anesthesia was administered to the skin and subcutaneous tissue around the existing incision was extended medial and laterally to allow for greater exposure of the proximal and distal femoral vessels. We then continued to remove the existing fascial suture closure. With good exposure, we were able to sharply dissected out the superficial femoral artery distally to an area beyond the palpable plaque. We also dissected proximally above the circumflex vessels. Vesseloops were placed around the circumflex vessels, a branch off the proximal superficial femoral artery, the superficial femoral artery distally, the profunda, and additional branch of the common femoral artery. 5000 units of heparin was given a lot to circulate. Clamp was secured proximal to the circumflex vessels on the distal external iliac artery proximal to the area of palpable plaque. We then secured the Vesseloops. An arteriotomy was made longitudinally from the proximal SFA to the distal external iliac artery. There was extensive near occlusive calcified plaque along with friable plaque and soft plaque within the artery. It was difficult to find any luminal flow. The plaque at the proximal SFA and the profunda were also nearly occlusive. We began the arduous task of endarterectomized using the entire artery with an arteriotomy. Hep saline was used to irrigate the vessel and all loose intima debris was removed. This took quite a bit time due to the calcified and friable nature of the plaque. Once we were satisfied with the endarterectomy, xenosure patch was selected and used to close the arteriotomy and running fashion with 5-0 Prolene hemostatic suture. Before the final sutures are placed, we flushed inflow and outflow artery. A 3-0 Vijaya balloon was passed distally and upon retrieval no thrombus or debris was noted from the SFA or popliteal artery. We irrigated with heparinized saline. Final sutures are placed with flow restored through the profunda. We then restored flow through the common femoral artery and lastly through the superficial femoral artery. We did not note good flow in the superficial femoral artery. The profunda was widely patent with triphasic flow. We therefore secured at clamp just proximal to the profunda on the common femoral artery. We secured the vessel upon the profunda in the SFA. We made a small arteriotomy in the SFA distal to the patch and found more loose intima and debris. This was removed carefully. A small piece of the remaining patch was used to close the arteriotomy 6-0 Prolene suture. We restored flow and good hemostasis was noted. Now there was a strong pulse in the SFA with a biphasic signal. At this point the foot was warm and pink. Capillary refill was less than 1 second. She had a strong signal at the DP and a weak signal at the PT. We irrigated with copious amounts of saline in the groin. We approximated the deep tissues over the superficial femoral artery with running Vicryl suture. We approximated the femoral sheath with running Vicryl suture. We closed the fascial layers in 3 layers with running Vicryl suture. We approximated the deep dermal layer with interrupted 3-0 Vicryl sutures. We close the skin with skin presley. The incision was cleaned and dried and 4 x 4's and as a final dressing. The patient was then allowed to awaken and taken to recovery in stable condition. She tolerated the procedure and the sedation well. ESTIMATED BLOOD LOSS: Approximately 50 mL. COMPLICATIONS: None. PLAN: We plan to admit the patient to the hospitalist service, for [facility]. We appreciate their assistance with the patient. We'll keep her on bed rest overnight with bathroom privileges, but then activity as tolerated starting in the morning. PT OT prn, but hopefully she will be out of bed to the chair for meals and able to ambulate starting tomorrow. We will plan for discharge Tuesday or depending on her progress. We will keep her on a heparin drip at 1000 units an hour and check a PTT in 6 hours. It can be titrated per protocol. Depending on her perfusion tomorrow, we will decide on her discharge anticoagulation. We appreciate the opportunity to participate in the care of this patient. ROSIE CHAVEZ MD Apr 15, 2020 20:24
[2020-04-15] MEDS ORDERED: LR 1,000 ML IV SCH (20:30)
[2020-04-15] MEDS ORDERED: HYDROMORPHONE HCL 0.5 MG/ 0.5 ML SYRINGE (J1170 PER 1) IV PRN (20:30)
[2020-04-15] MEDS ORDERED: PERCOCET 5MG/325MG TAB PO PRN ×2 (20:30)
[2020-04-15] MEDS ORDERED: HYDROmorphone 2 MG TAB PO PRN (20:30)
[2020-04-15] MEDS ORDERED: oxyCODONE 5MG TAB PO PRN (20:30)
[2020-04-15] MEDS ORDERED: diazePAM 5 MG TAB PO PRN (20:30)
[2020-04-15] MEDS ORDERED: fentaNYL 100 MCG/2 ML INJECTION (J3010) IV PRN (20:30)
[2020-04-15] MEDS ORDERED: ONDANSETRON 4MG/2ML VIAL IV PRN ×2 (20:30)
[2020-04-15] MEDS: HEPARIN DRIP 25,000 UNITS in IV 1 EA IV SCH ×2 (20:31→21:00)
[2020-04-15] MEDS ORDERED: HEPARIN SOD (PORCINE) 5000UNITS/ML 1ML VIAL/SYRINGE IV PRN (20:45)
[2020-04-15 21:00] VITALS: BP 150/62
--- NOTE | 2020-04-15 21:39 | HPEPDOC ---
[facility] Medical History & Physical Date of Admission Apr 15, 2020 Date of Service: Apr 15, 2020 Attending Physician: ZOILA SU MD History and Physical CHIEF COMPLAINT: Medical management of post op right femoral endarterectomy with vein patch angioplasty HISTORY OF PRESENT ILLNESS: Patient is a 79 year old female with severe atherosclerosis of the [place] arteries involving the distal aortic, common iliacs, external iliacs, common femorals, and proximal superficial femoral arteries bilaterally who presented to [facility] for an arteriogram with attempt to cross the total occluded left iliac system. This was unsuccessful. Additionally attempt was made to place balloon stent in the right iliac system. In recovery the patient was noted to have diminished PT and DP pulses compared to preop. Vascular surgery suspected potential embolization vs thrombosis or near occlusion. The patient was taken to the OR for a right femoral endarterectomy. Patient tolerated the surgery well. Hospitalist service was consulted for medical management of the patients chronic medical conditions while hospitalized. PAST MEDICAL HISTORY: 1. Severe atherosclerotic disease of the [place] arteries 2. ACS/ASCVD 3. HTN PAST SURGICAL HISTORY: 1. Triple Bypass 2. Right femoral Endarterectomy 3. Vein stripping SOCIAL HISTORY: Patient lives at home with her son. She is independent of her ADLs. She is a former smoker and quit 20 years ago. She denies any alcohol use. Denies any IV or illicit drug use FAMILY HISTORY: Patient has a family history significant for ACS in her father. Her brother has cancer ALLERGIES: Please see below. REVIEW OF SYSTEMS: CONSTITUTIONAL: Denies fevers, chills, unintentional weight loss of weight gain HEENT: Denies difficulty or pain on swallowing. Denies headache CARDIOVASCULAR: Denies chest pain, pressure. Denies palpitations or feelings of the heart racing RESPIRATORY: Denies shortness of breath. Denies cough. Denies wheezing GASTROINTESTINAL: Denies abdominal pain. Denies diarrhea or constipation. Denies nausea or vomiting GENITOURINARY: Denies dysuria or increased frequency. Denies urgency SKIN: Denies rashes or lesions MUSCULOSKELETAL: Admits to chronic back pain NEUROLOGICAL: Denies changes in gait or balance. Denies changes in speech PSYCHIATRIC: Denies depression or anxiety ENDOCRINE: Denies heat intolerance or cold intolerance HEMATOLOGIC/LYMPHATIC: Denies easy bruising or bleeding. Denies history of DVT or PE HOME MEDICATIONS: Please see below. PHYSICAL EXAMINATION: VITAL SIGNS: Temperature 98, pulse 71, respiratory rate 18, blood pressure 136/63, pulse oximetry 100% on 2L NC GENERAL APPEARANCE: Awake, alert, and oriented. Appears in no acute distress. Lying comfortably in bed HEENT: Atraumatic, normocephalic. Eyes are nonicteric. Trachea is midline. Mucous membranes are pink and moist CARDIOVASCULAR: Normal S1, S2. Regular rate and rhythm. 2/6 systolic ejection murmur. No clicks or rubs LUNGS: Clear vesicular breath sounds bilaterally. No wheezes, rhonchi or rales. Symmetric chest expansion ABDOMEN: Soft, nondistended. Nontender. Normoactive bowel sounds throughout EXTREMITIES: No edema. right groin incision currently bandaged. No overlying palpable hematoma. Pulses present via doppler NEUROLOGICAL: No focal neurological deficits PSYCHIATRIC: Mood and affect appear appropriate LABORATORY DATA: See below. MICROBIOLOGY: Please see below. ASSESSMENT: Patient is a 79 year old female s/p right femoral endarterectomy who is admitted to hospitalist service for management of chronic medical conditions while hospitalized . PLAN: 1. Severe Atherosclerotic Disease of the [place] arteries s/p right femoral end arterectomy -Plan per Dr. George of Vascular Surgery. Patient to remain bed rest tonight with bathroom privileges -Continue Heparin Drip with q6h PTT and titration per protocol -Hold ASA and Plavix -PT/OT -Pain management per Dr. George 2. Hypertension -Currently normotensive likely 2/2 anesthesia -Will monitor BP. Hold losartan for now. 3. Reactive Airway Disease/Asthma -Continue albuterol HFA q4h as needed for SOB 4, DVT Prophylaxis -Patient is currently on heparin drip Vital Signs Vital Signs Date Time Temp Pulse Resp B/P (MAP) Pulse Ox O2 Delivery O2 Flow Rate FiO2 04/15/20 20:32 97.7 72 15 129/60 (83) 99 Nasal Cannula 2 Laboratory Data Labs 24H Laboratory Tests 2 04/15/20 09:15: Nucleated Red Blood Cells % (auto) 0.0, Anion Gap 8, Glomerular Filtration Rate 55.8, Calcium Level 8.9 04/15/20 13:20: Coronavirus (COVID-19)(PCR) NEGATIVE CBC/BMP Laboratory Tests 04/15/20 09:15 Home Medications Scheduled Aspirin (Aspirin EC) 81 Mg Tablet.dr, 81 MG PO DAILY Calcium Carbonate/Vitamin D3 (Calcium 600-Vit D3 200 Tablet) 1 Each Tablet, 1 TAB PO DAILY Cholecalciferol (Vitamin D3) (Vitamin D3) 1,000 Unit Tablet, 2,000 UNITS PO D AILY Clopidogrel Bisulfate (Plavix) 75 Mg Tab, 75 MG PO DAILY Ezetimibe (Zetia) 10 Mg Tablet, 10 MG PO DAILY Losartan Potassium (Losartan Potassium) 100 Mg Tablet, 100 MG PO QHS Multivitamins (Thera M Plus Tablet) 1 Each Tablet, 1 TAB PO DAILY Scheduled PRN Albuterol Sulfate (Proair Hfa) 8.5 Gm Hfa.aer.ad, 2 PUFF INH QID PRN for SHORTNESS OF BREATH Ipratropium [place] (Ipratropium [place]) 30 Ml Nahma, 2 SPRAY NA BID PRN for NASAL CONGESTION Allergies Coded Allergies: Penicillins (Verified Allergy, Unknown, ITCHING BURNING, 01/01/20) A-FIB/CHADSVASC A-FIB History Current/History of A-Fib/PAF?: No GME ATTESTATION GME ATTESTATION My faculty preceptor for this patient encounter was physically present during the encounter and was fully available. All aspects of the patient interview, examination, medical decision making process, and medical care plan development were reviewed and approved by the faculty preceptor. The faculty preceptor is aware and concurs with the plan as stated in the body of this note and will attest to such by his/her cosignature. ATTENDING NOTE I reviewed the note and agree with the findings as documented by with the following additions. We will check her lipids, A1C and start her on a statin. LUIS DANIEL BEVERLY DO Apr 15, 2020 21:39 ZOILA SU MD Apr 16, 2020 06:14
[2020-04-15] MEDS ORDERED: D31000TA2 PO (22:44)
[2020-04-15] MEDS ORDERED: PROAAER10 INH (22:44)
[2020-04-15] MEDS ORDERED: ZETI10TA16 PO (22:44)
[2020-04-15] MEDS ORDERED: CALC-212 PO (22:44)
[2020-04-15] MEDS ORDERED: VITMTA PO (22:44)
[2020-04-15] MEDS ORDERED: LOSA100T50 PO (22:44)
[2020-04-15] MEDS ORDERED: ASPI-161 PO (22:44)
[2020-04-15] MEDS ORDERED: IPRA3SP (23:42)
[2020-04-16] VITALS (7 sets, daily range): BP systolic 138–169; BP diastolic 52–79
[2020-04-16] MEDS: ACETAMINOPHEN TAB 650MG DOSE (2X325MG) PO SCH ×6 (00:35→21:10)
[2020-04-16 06:23] LABS: HEMATOCRIT 33.9 % (36.0-47.0); HEMOGLOBIN 10.8 g/dl (12.0-15.5); MEAN CORPUSCULAR HEMOGLOBIN 27.8 pg (27.0-33.0); MEAN CORPUSCULAR HGB CONC 31.9 g/dl (32.0-36.5); MEAN CORPUSCULAR VOLUME 87.4 fl (80.0-96.0); PLATELET COUNT, AUTOMATED 216 10^3/uL (150-450); RED BLOOD COUNT 3.88 10^6/uL (4.00-5.40); WHITE BLOOD COUNT 9.5 10^3/uL (4.0-10.0)
[2020-04-16 06:43] LABS: BLOOD UREA NITROGEN 11 MG/DL (7-18); CALCIUM LEVEL 8.3 MG/DL (8.8-10.2); CARBON DIOXIDE LEVEL 27 MEQ/L (21-32); CHLORIDE LEVEL 98 MEQ/L (98-107); CREATININE FOR GFR 0.75 MG/DL (0.55-1.30); GLOMERULAR FILTRATION RATE > 60.0 (>39); GLUCOSE, FASTING 100 MG/DL (70-100); POTASSIUM SERUM 4.3 MEQ/L (3.5-5.1); SODIUM LEVEL 130 MEQ/L (136-145)
--- NOTE | 2020-04-16 08:57 | IPNPDOC ---
Text Note Date of Service The patient was seen on 04/16/20. NOTE Vascular Surgery. 79-year-old female with severe atherosclerosis of the [place] arteries primarily involving the distal aortic, common iliac arteries, external iliac arteries, common femoral arteries, and proximal superficial femoral arteries bilaterally. Status post arteriogram as per Dr. Chavez 04/15/20 with attempt to cross the chronic total occlusion in the left iliac system, which was unsuccessful and aborted. Also attempted to stent the right iliac system, but were only able to place proximal balloon expandable stent due to disruption of the balloon requiri ng a cut down in the right groin to safely remove the balloon and sheath under direct visualization. Following this, in recovery, the patient had diminished PT and DP signals compared to preop. Heparin drip was started postprocedure, no significant improvement was noted. Patient was subsequently taken to the operating room 04/15/24 femoral endarterectomy as per Dr. Chavez, the patient is status post right femoral endarterectomy POD1 This morning the patient is sitting up in bed, she states pain is controlled. The feet are warm to touch bilaterally. Monophasic DP/PT pulses noted argelia mo. Groin incision with dressing intact, will leave in place for now since she was in the OR last evening. Hemoglobin 10.8 A.m. PTT pending. Continue with analgesia, continue heparin drip, aspirin 81 mg daily. PT/OT pending. Encouraged protein to help with healing. VS,Fishbone, I+O VS, Fishbone, I+O Laboratory Tests 04/15/20 09:15 04/16/20 06:05 Vital Signs Date Time Temp Pulse Resp B/P (MAP) Pulse Ox O2 Delivery O2 Flow Rate FiO2 04/16/20 06:00 96.7 69 18 158/68 (98) 98 Nasal Cannula 2.0 I&O- Last 24 Hours up to 6 AM 04/16/20 05:59 Intake Total 1160 ml Output Total 850 ml Balance 310 ml Gita Pham Apr 16, 2020 08:57
[2020-04-16] MEDS ORDERED: FLUBLOK(EGG FREE)(QUAD)INFLUENZA VACC 0.5ML SYRINGE 18YRS & OLDER IM ONE (09:00)
[2020-04-16] MEDS: ASPIRIN 81 MG ENTERIC TAB PO SCH (09:20)
[2020-04-16 09:54] LABS: CK-MB VALUE MASS 1.3 NG/ML (<3.6); CPK CREATINE PHOSPHOKINASE 134 U/L (26-192); MB/CK RELATIVE INDEX 0.97 (< OR =4); TROPONIN I < 0.02 NG/ML (< 0.10)
[2020-04-16] MEDS: METOPROLOL TART 12.5 MG PER 1/2 TAB PO SCH ×2 (10:39→21:10)
[2020-04-16] MEDS: HEPARIN DRIP 25,000 UNITS in IV 1 EA IV SCH (16:54)
--- NOTE | 2020-04-16 17:07 | IPNPDOC ---
Text Note Date of Service The patient was seen on 04/16/20. NOTE SUBJECTIVE: Patient is a 79yo female, with a history of atherosclerotic disease, ACS and HTN. The patient presented to the OR yesterday for a L iliac arteriogram. After that procedure failed, they attempted a R iliac balloon stent, which subsequently failed. Patient was then taken for a R femoral endarterectomy. Patient was admitted post-op for observation of bleeding, and the hospitalist was called to manage her chronic medical conditions while an inpatient. There were no events overnight, though the patient states she did not sleep well. She lost weight recently due to a flare of diverticulitis 2m ago, and had some diarrhea constipation at that time. She has not had any constipation or diarrhea since entering the hospital as she was NPO due to her operation. She has chronic sinusitis. Patient notes that she has had headaches post-op, which is highly unusual as she does not usually get headaches. Headaches are well treated with Tylenol. OBJECTIVE: VITALS: See below GENERAL: Patient is not in any acute distress and is sitting comfortably in bed after finishing breakfast. Lips are acyanotic. CV: RRR, S1 and S2 sounds noted. There is a murmur noted at the R 2nd ICS. No S3 or S4 sounds were noted. Capillary refill <2s in fingers, >4 seconds in toes. LUNGS: Lungs are clear to auscultation in all lung iglesias b/l. There were no rales, rubs or rhonchi heard b/l. ABDOMEN: Abdomen is soft, nontender and nondistended. Bowel sounds heard in all four quadrants. EXTREMITIES: There is no edema in the legs. DP pulses are reduced. ASSESSMENT/PLAN: Patient is a 79yo female s/p R femoral endarterectomy, with a history of severe athrosclerotic disease and HTN, who was admited to hospitalist service for management of chronic medical conditions while hospitalized. 1. Atherosclerotic disease -Refer to plan by Dr. George from Vascular Surgery. -Bed rest with bathroom privileges -Stop heparin drip at 20:00, Apr 16, 2020 -Start Eliquis therapy 5mg bid PO at 21:00, Apr 16, 2020. -Continue home ASA 81mg daily PO -Hold Plavix 2. Nonsustained Ventricular Tachycardia, Asymptomatic -EKG showed L bundle branch block with sinus rhythm and frequent PVCs -Troponins were negative -Start Metoprolol 12.5mg bid PO -Repeat EKG -Order Echo 2. HTN -Continue home losartan 3. Reactive Airway Disease -Continue albuterol HFA q4h PRN 4. DVT Prophylaxis -Patient is on heparin drip and will change to Eliquis See 1. Atherosclerotic Disease Disp: Pending clearance from Vascular Surgery VS,Fishbone, I+O VS, Fishbone, I+O Laboratory Tests 04/16/20 06:05 Vital Signs Date Time Temp Pulse Resp B/P (MAP) Pulse Ox O2 Delivery O2 Flow Rate FiO2 04/16/20 14:00 97.4 60 18 143/52 (82) 96 Room Air 04/16/20 06:00 2.0 I&O- Last 24 Hours up to 6 AM 04/16/20 06:00 Intake Total 1160 ml Output Total 850 ml Balance 310 ml GME ATTESTATION GME ATTESTATION My faculty preceptor for this patient encounter was physically present during the encounter and was fully available. All aspects of the patient interview, examination, medical decision making process, and medical care plan development were reviewed and approved by the faculty preceptor. The faculty preceptor is aware and concurs with the plan as stated in the body of this note and will attest to such by his/her cosignature. ATTENDING NOTE Patient was seen and examined by me personally with the residents/ students. I agree with the above assessment and plan KYLE MAURER Apr 16, 2020 17:02 ANGELITO WALTER MD Apr 22, 2020 12:34
[2020-04-16] MEDS: APIXABAN 5 MG TAB (ELIQUIS) PO SCH (21:09)
[2020-04-17] MEDS: ACETAMINOPHEN TAB 650MG DOSE (2X325MG) PO SCH ×4 (00:42→12:24)
[2020-04-17 02:00] VITALS: BP 160/76
[2020-04-17 03:11] LABS: HEMOGLOBIN A1c 5.6 %
[2020-04-17 03:21] LABS: CHOLESTEROL RISK RATIO 2.058 (<5)
[2020-04-17 06:00] VITALS: BP 154/72
[2020-04-17 06:29] LABS: HEMATOCRIT 33.5 % (36.0-47.0); HEMOGLOBIN 10.5 g/dl (12.0-15.5); MEAN CORPUSCULAR HEMOGLOBIN 27.6 pg (27.0-33.0); MEAN CORPUSCULAR HGB CONC 31.3 g/dl (32.0-36.5); MEAN CORPUSCULAR VOLUME 87.9 fl (80.0-96.0); PLATELET COUNT, AUTOMATED 220 10^3/uL (150-450); RED BLOOD COUNT 3.81 10^6/uL (4.00-5.40); WHITE BLOOD COUNT 9.2 10^3/uL (4.0-10.0)
[2020-04-17 06:50] LABS: BLOOD UREA NITROGEN 12 MG/DL (7-18); CALCIUM LEVEL 8.3 MG/DL (8.8-10.2); CARBON DIOXIDE LEVEL 28 MEQ/L (21-32); CHLORIDE LEVEL 99 MEQ/L (98-107); CREATININE FOR GFR 0.85 MG/DL (0.55-1.30); GLOMERULAR FILTRATION RATE > 60.0 (>39); GLUCOSE, FASTING 91 MG/DL (70-100); POTASSIUM SERUM 4.4 MEQ/L (3.5-5.1); SODIUM LEVEL 132 MEQ/L (136-145)
[2020-04-17 08:42] VITALS: BP 154/72
[2020-04-17] MEDS: METOPROLOL TART 12.5 MG PER 1/2 TAB PO SCH (08:42)
[2020-04-17] MEDS: ASPIRIN 81 MG ENTERIC TAB PO SCH (08:44)
[2020-04-17] MEDS: APIXABAN 5 MG TAB (ELIQUIS) PO SCH (08:44)
[2020-04-17] MEDS ORDERED: ATORVASTATIN 20 MG TAB PO SCH (09:00)
[2020-04-17 10:00] VITALS: BP 148/63
[2020-04-17] MEDS ORDERED: METO1TAB87 PO (11:34)
[2020-04-17] MEDS ORDERED: ATOR1TAB21 PO (11:34)
[2020-04-17] MEDS ORDERED: ELIQ5TAB PO (11:34)
--- NOTE | 2020-04-17 13:55 | IPNPDOC ---
Text Note Date of Service The patient was seen on 04/17/20. NOTE Vascular Surgery. 79-year-old female with severe atherosclerosis of the [place] arteries primarily involving the distal aortic, common iliac arteries, external iliac arteries, common femoral arteries, and proximal superficial femoral arteries bilaterally. Status post arteriogram as per Dr. Chavez 04/15/20 with attempt to cross the chronic total occlusion in the left iliac system, which was unsuccessful and aborted. Also attempted to stent the right iliac system, but were only able to place proximal balloon expandable stent due to disruption of the balloon requiri ng a cut down in the right groin to safely remove the balloon and sheath under direct visualization. Following this, in recovery, the patient had diminished PT and DP signals compared to preop. Heparin drip was started postprocedure, no significant improvement was noted. Patient was subsequently taken to the operating room 04/15/24 femoral endarterectomy as per Dr. Chavez, the patient is status post right femoral endarterectomy POD2 This morning the patient is sitting in chair, she states pain is controlled. Anxious for discharge The feet are warm to touch bilaterally. Monophasic DP/PT pulses noted bilaterally. Groin incision with pupils intact, the wound is thoroughly cleaned, dry dressing is reapplied. Continue Lipitor, Eliquis, aspirin. Tentative plan for discharge today Encouraged protein to help with healing. Plan for follow-up in the office next week to recheck the patient's groin wound. Plan for staple removal and 17-21 days. We have reviewed wound care with the patient. Advised the patient to shower daily, pat dry with a clean towel, continue to keep the wound clean and dry, apply dry dressing and paper tape daily. VS,Fishbone, I+O VS, Fishbone, I+O Laboratory Tests 04/17/20 06:06 Vital Signs Date Time Temp Pulse Resp B/P (MAP) Pulse Ox O2 Delivery O2 Flow Rate FiO2 04/17/20 10:00 97.5 57 15 148/63 (91) 95 Room Air 04/16/20 06:00 2.0 I&O- Last 24 Hours up to 6 AM 04/17/20 06:00 Intake Total 1584 ml Output Total 1350 ml Balance 234 ml Gita Pham Apr 17, 2020 13:55
--- NOTE | 2020-04-17 14:27 | DS.PDOC ---
Discharge Summary General Date of Admission Apr 15, 2020 at 21:14 Date of Discharge Apr 17, 2020 Attending Physician: ANGELITO WALTER MD Specialist/Consultants Involve: MARIO MEIER MD Discharge Summary PROCEDURES PERFORMED DURING STAY: R Femoral Endarterectomy, R femoral balloon stent (attempted), L iliac arteriogram (attempted) ADMITTING DIAGNOSES: 1. Severe atherosclerotic disease of the [place] arteries 2. ACS/ASCVD 3. HTN 4. Risk for thrombosis DISCHARGE DIAGNOSES: 1. Severe atherosclerotic disease of the [place] arteries 2. ACS/ASCVD 3. HTN 4. Ventricular Tachycardia COMPLICATIONS/CHIEF COMPLAINT: Atherosclerosis. HISTORY OF PRESENT ILLNESS: The patient is a 79yo female who has a history of severe atherosclerosis of [place] arteries, including the the distal aortic, common iliacs, external iliacs, common femorals, and proximal superficial femoral arteries bilaterally. The patient presented to the hospital on Apr 15 for evaluation of [place] arteries with an arteriogram. The initial attempt to cross the L iliac artery failed, so a R iliac balloon stent was attempted. In recovery the patients DP and PT pulses were decreased on the R side compared to preop, and Vascular Surgery suspected an embolus or a thrombus near the occlu tanvi. A heparin drip was started post operation, with no improvement noted. A R femoral endarterectomy with vein patch angiography was preformed. The patient was admitted and he hospitalist team was called for post-operation management and management of her chronic medical conditions while in the hospital. HOSPITAL COURSE: The patient was admitted to the hospital and kept on a heparin drip for the first day of her stay. The patient was kept on continuous telemetry throughout her stay, which showed several episodes on non-sustained ventricular tachycardia. She was asymptomatic during these episodes. Cardiac markers were ordered and were negative, and repeat EKG showed L Bundle branch block. An echocardiogram was ordered, but the reading is pending. The patient was prescribed metoprolol, 12.5mg BID PO for management of cardiac rhythm, which needs to be checked up with her regular combination presser as outpatient. The hepatin drip was stopped the evening of Apr 15, and she was switched to Eliquis for her DVT prophylaxis. She remained largely asymptomatic through her stay except for mild headaches well treated with Tylenol. Her APPT was elevated to 92 at admission, and 42 the day of discharge. Guidance fluoroscopy is pending. Pathology report for her endarterectomy is pending. She had not passed a bowel movement during her stay, but she was not tender, and had eaten very little before and during her stay. Her capillary refill in her toes improved, and her ventricular tachycardia improved. The patient was cleared by Vascular Surgery and cleared for discharge on Apr 17, 2020. DISCHARGE MEDICATIONS: Please see below. ALLERGIES: Please see below. PHYSICAL EXAMINATION ON DISCHARGE: VITAL SIGNS: Please see below. GENERAL: Patient is a pleasant woman sitting comfortably in her chair. She is alert and oriented. HEENT: Eyes are PERRLA, lips are acyanotic and conjunctiva is pink. CARDIOVASCULAR EXAMINATION: RRR, S1 and S2 sounds heard. A murmur is heard at the Right 2nd ICS. Capillary refill <2s in the fingers and 3-5s in the toes. The radial pulses are equal, but the R PT/DP pulse is reduced compared to the L. RESPIRATORY EXAMINATION: Lungs are clear to auscultation in all lung iglesias. No wheezes, rubs, rales or rhonchi are noted. ABDOMINAL EXAMINATION: Abdomen is nontender, soft and nondistended. EXTREMITIES: No edema is noted in the legs. LABORATORY DATA: Please see below. IMAGING: Echocardiogram, Apr 16, 2020. PENDING PROGNOSIS: Good ACTIVITY: As tolerated. DISPOSITION: 01 Home, Self-Care. DISCHARGE INSTRUCTIONS: 1. See surgeon in 1 week for checkup of incision 2. Shower daily without dressing. Pat dry with clean towel. Apply dry gauze and paper tape R groin. 3. No lifting >5lbs for 2 weeks 4. No strenuous exorcize for 2 weeks ITEMS TO FOLLOWUP ON ON OUTPATIENT: 1. Followup with Dr. Barros in 1 week for evaluation of incision 2. Consult combination presser for heart block, murmur and ventricular tachycardia. DISCHARGE CONDITION: Stable. TIME SPENT ON DISCHARGE: Greater than 30 minutes. Vital Signs/I&Os Vital Signs Date Time Temp Pulse Resp B/P (MAP) Pulse Ox O2 Delivery O2 Flow Rate FiO2 04/17/20 10:00 97.5 57 15 148/63 (91) 95 Room Air 04/16/20 06:00 2.0 I&O- Last 24 Hours up to 6 AM 04/17/20 06:00 Intake Total 1584 ml Output Total 1350 ml Balance 234 ml Laboratory Data Labs 24H Laboratory Tests 2 04/17/20 02:34: Estimated Mean Plasma Glucose 114H, Hemoglobin A1c 5.6, Triglycerides Level 84, Total Cholesterol 105, LDL Cholesterol 37, Non-HDL Cholesterol (LDL + VLDL) 54, Total HDL Cholesterol 51, Cholesterol/HDL Ratio 2.058 04/17/20 06:06: Nucleated Red Blood Cells % (auto) 0.0, Activated Partial Thromboplast Time 42.1H, Anion Gap 5L, Glomerular Filtration Rate > 60.0, Calcium Level 8.3L CBC/BMP Laboratory Tests 04/17/20 06:06 Discharge Medications Scheduled Apixaban (Eliquis) 5 Mg Tablet, 5 MG PO BID Aspirin (Aspirin EC) 81 Mg Tablet.dr, 81 MG PO DAILY, (Reported) Atorvastatin Calcium (Atorvastatin Calcium) 20 Mg Tablet, 20 MG PO DAILY Calcium Carbonate/Vitamin D3 (Calcium 600-Vit D3 200 Tablet) 1 Each Tablet, 1 TAB PO DAILY, (Reported) Cholecalciferol (Vitamin D3) (Vitamin D3) 1,000 Unit Tablet, 2,000 UNITS PO DAILY, (Reported) Ezetimibe (Zetia) 10 Mg Tablet, 10 MG PO DAILY, (Reported) Losartan Potassium (Losartan Potassium) 100 Mg Tablet, 100 MG PO QHS, (Reported) Metoprolol Tartrate (Metoprolol Tartrate) 25 Mg Tablet, 12.5 MG PO BID Multivitamins (Thera M Plus Tablet) 1 Each Tablet, 1 TAB PO DAILY, (Reported) Scheduled PRN Albuterol Sulfate (Proair Hfa) 8.5 Gm Hfa.aer.ad, 2 PUFF INH QID PRN for SHORTNESS OF BREATH, (Reported) Ipratropium [place] (Ipratropium [place]) 30 Ml [place], 2 SPRAY NA BID PRN for NASAL CONGESTION, (Reported) Allergies Coded Allergies: Penicillins (Verified Allergy, Unknown, ITCHING BURNING, 01/01/20) GME ATTESTATION GME ATTESTATION My faculty preceptor for this patient encounter was physically present during the encounter and was fully available. All aspects of the patient interview, examination, medical decision making process, and medical care plan development were reviewed and approved by the faculty preceptor. The faculty preceptor is aw are and concurs with the plan as stated in the body of this note and will attest to such by his/her cosignature. ATTENDING NOTE Patient was seen and examined by me personally with the residents/ students. I agree with the above assessment and plan KYLE MAURER Apr 17, 2020 13:27 ANGELITO WALTER MD Apr 22, 2020 12:36
--- NOTE | 2020-04-18 09:03 | ECGEPIP ---
[facility] Test Date: 2020-04-16 Pat Name: TERESA ALVARES Department: Room: [place] [address] Gender: Female Director Title: TUNG : 1940 Requested By: KAYLEE REYNOLDS Order Number: [id number] Reading MD: Ricardo Cali Measurements Intervals Peterson Rate: 78 P: 67 UT: 197 QRS: -58 QRSD: 146 T: 119 QT: 434 QTc: 495 Interpretive Statements SINUS RHYTHM WITH FREQUENT SUPRAVENTRICULAR PREMATURE COMPLEXES Including a 4-beat atrial run with LEFT BUNDLE BRANCH BLOCK abberancy, Poor R wave p progression, MARKED LEFT AXIS DEVIATION, Nonspecific ST-T abnormalities. Electronically Signed on 04-18-2020 9:03:21 EDT by Ricardo Cali
--- NOTE | 2020-04-18 10:45 | ECHO ---
DATE OF PROCEDURE: 04/16/2020 Age: 79 Gender: Female REFERRING PHYSICIAN: Dr. Whitaker. PATIENT LOCATION: Room 4233. REASON FOR STUDY: Abnormal EKG. 2D MEASUREMENTS: IVS 0.75 cm LV 5.2 cm LVPW 1.3 cm LA 3.7 cm Aorta 2.6 cm IVC 2.1 cm DOPPLER MEASUREMENT Peak velocity across the aortic valve 2.0 m/s Peak velocity across the LVOT 0.89 m/s Peak gradient across the aortic valve 16 mmHg Mean gradient across the aortic valve 7 mmHg Mitral E 1.3 Mitral A 0.87 with a ratio of 1.5 Maximum tricuspid valve velocity 3.3 m/s 2D COMMENTS: 1. Normal left ventricular size with probably mildly increased left ventricular wall thickness, but the left ventricular systolic function is mildly depressed with left ventricular ejection fraction (LVEF) estimated at 45% to 50%. 2. Normal left atrium. The right atrium appeared to be enlarged. Normal ventricle. 3. The atrial septum appeared to be normal without evidence of defect or shunt. 4. Normal aortic root. 5. No pericardial effusion seen. 6. Mildly calcified aortic valve with minimally restricted leaflet motion. Moderately calcified mitral annulus with normal anterior mitral valve leaflet motion. Normal tricuspid valve and pulmonic valve. The proximal pulmonary artery branches were not well visualized. 7. The inferior vena cava was mildly dilated. Central venous pressure mildly elevated. Doppler detects mild aortic regurgitation, moderate mitral regurgitation, moderate tricuspid regurgitation, and trace pulmonary regurgitation. The calculated pulmonary artery systolic pressure varies between 40 to 50 mmHg. Assessment of the left ventricular diastolic function appeared to be normal. IMPRESSION: 1. Probably mildly depressed global left ventricular systolic function, left ventricular ejection fraction (LVEF) is estimated at 45% to 50%. 2. Aortic valve sclerosis with mild aortic regurgitation and probably mild aortic stenosis. 3. Mitral annulus calcification with moderate mitral regurgitation. 4. Moderate tricuspid regurgitation. Moderate pulmonary hypertension. 5. There are findings consistent with elevated central venous pressure. The inferior vena cava was mildly enlarged. 6. Not mentioned above, there was a tiny color flow jet at the level of the fossa ovalis that could represent a patent foramen ovale (PFO). MTDD
== END 2020-04-17 13:02 | disposition home or self-care (01) | DRG 253 ==
LOC: M IRPRO 08:35 → M MSPAV 21:14
PROVIDERS: ADMIT Internal Medicine; ATTEND Internal Medicine
PROC: 04UK0KZ Supplement Right Femoral Artery with Nonautologous Tissue Substitute, Open Approach (ICD-10-PCS; 2020-04-15)
PROC: 04CK0ZZ Extirpation of Matter from Right Femoral Artery, Open Approach (ICD-10-PCS; principal; 2020-04-15 09:30)
DX: I70.221 Atherosclerosis of native arteries of extremities with rest pain, right leg (principal); I47.2 Ventricular tachycardia; Z79.899 Other long term (current) drug therapy; I10 Essential (primary) hypertension; Z79.82 Long term (current) use of aspirin; Z88.0 Allergy status to penicillin; J45.909 Unspecified asthma, uncomplicated

== ENCOUNTER → 2020-04-25 | Outpatient (CLI) | payer MEDICARE ==
[~2020-04-25] MED LIST changes: +ASPI-161 PO; +ATOR1TAB21 PO; +CALC-212 PO; +D31000TA2 PO; +ELIQ5TAB PO; +IPRA3SP; +LOSA100T50 PO; +METO1TAB87 PO; +PROAAER10 INH; +VITMTA PO; +ZETI10TA16 PO
--- NOTE | 2020-04-25 15:34 | REP ---
INDICATION: ATHEROSCLEROSIS, OCCLUSION/STENOSIS COMPARISON: 12/12/2018. TECHNIQUE: Real time beltran scale and Duplex Doppler evaluation of the bilateral lower extremity arterial vasculature using linear high frequency transducer. FINDINGS: Beltran scale and duplex doppler images demonstrate moderate scattered plaquing in the right lower extremity arterial structures. Diffuse biphasic waveforms are seen except for monophasic waveform in the right profunda and posterior tibial artery. Trickle flow is seen in the distal posterior tibial artery. On the left there is severe plaquing with significant focal plaque at the origin of the left superficial femoral artery. There are diffuse monophasic waveforms throughout the left lower extremity. Peak systolic velocities (cm/sec) Common iliac artery: Right 81.8 ; left 72.3 External iliac artery: Right 190.9; left 58.9 Common femoral artery: Right 199; Left 58 Profunda femoris: Right 58; Left 41 SFA (proximal): Right 146; Left 48 SFA (mid): Right 47; Left 40 SFA (distal): Right 49; Left 29 Popliteal artery: Right 46; Left 27 SHUKRI (prox.): Right 38; Left 13 Tibioperoneal trunk: Right 48; Left 23 RELIEF SALESPERSON (prox.): Right 48; Left 17 RELIEF SALESPERSON (distal): Right 18; Left 25 SHUKRI (distal): Right 44; Left 19 IMPRESSION: Atheromatous changes with areas of narrowing as above. <Electronically signed by Darrius Beltran > 04/25/20 [id number]
--- NOTE | 2020-04-25 16:14 | REP ---
INDICATION: ATHEROSCLEROSIS, OCCLUSION/STENOSIS COMPARISON: 11/29/2018. TECHNIQUE: Real-time ultrasound evaluation and duplex Doppler interrogation of the extracranial carotid vasculature is performed. FINDINGS: There is mild plaquing and narrowing in both carotid bulbs extending into the internal and external carotid arteries. Luminal narrowing is less than 50% on the right. On the left there is elevated peak systolic velocity in the carotid bulb and internal carotid artery with visual narrowing. There is elevated ICA to CCA ratio. Findings are most compatible with stenosis at that location 50-69%. The vertebral arteries demonstrate normal direction of flow. RIGHT LEFT Peak systolic velocity ICA 86.9 cm/s 184.7 cm/s End diastolic velocity ICA 22.6 cm/s 33.3 cm/s Peak systolic velocity CCA 64.3 cm/s 65.8cm/s Peak systolic velocity ECA 63.8 cm/s 84.6 cm/s ICA/CCA ratio 20.29 2.31 IMPRESSION: Luminal narrowing is less than 50% on the right. On the left there is elevated peak systolic velocity in the carotid bulb and internal carotid artery with visual narrowing. There is elevated ICA to CCA ratio. Findings are most compatible with stenosis at that location 50-69%. <Electronically signed by Darrius Beltran > 04/25/20 [id number]
== END ==
LOC: M RAD 13:05
PROVIDERS: ATTEND Physician Assistant
DX: I65.23 Occlusion and stenosis of bilateral carotid arteries (principal); I70.213 Atherosclerosis of native arteries of extremities with intermittent claudication, bilateral legs; I72.3 Aneurysm of iliac artery; Z95.1 Presence of aortocoronary bypass graft

== ENCOUNTER → 2021-02-02 | Outpatient (CLI) | payer MEDICARE ==
--- NOTE | 2021-02-02 15:07 | REP ---
INDICATION: PAIN. COMPARISON: 03/09/2019 TECHNIQUE: Five views FINDINGS: There is marginal osteophytosis bilaterally again right greater than left status quo. There is disc space narrowing at every level status quo. There is a grade 1 L4 upon L5 spondylolisthesis status quo. Heavy degenerative facet joint changes are again seen bilaterally at every level particularly L4-5 and L5-S1 status quo. There is no significant change in appearance of vertebral body height or alignment. The bones are demineralized. There is anterior lipping at every level. Since the last exam, a right common iliac artery stent has been placed. IMPRESSION: Chronic changes as described above. <Electronically signed by Fawad Bowen > 02/02/21 [id number]
== END ==
LOC: M WUC 12:07
PROVIDERS: ATTEND Physician Assistant Medical
DX: M51.36 Other intervertebral disc degeneration, lumbar region (principal)

== ENCOUNTER → 2021-02-11 | Outpatient (REF) | payer MEDICARE ==
[2021-02-11 12:05] LABS: BACTERIA, URINE AUTO NEGATIVE (NEGATIVE); MUCUS, URINE SMALL (NEGATIVE); RBC, URINE AUTO TNTC /HPF (0-3); SQUAMOUS EPITHELIAL CELL UR AU 1 /HPF (0-6); WBC, URINE AUTO 19 /HPF (0-3)
== END ==
LOC: M LAB REF 11:29
PROVIDERS: ATTEND Registered Nurse
DX: R31.9 Hematuria, unspecified (principal); N39.0 Urinary tract infection, site not specified

== ENCOUNTER → 2021-02-20 | Outpatient (CLI) | payer MEDICARE ==
[~2021-02-20] MED LIST changes: +BACT800T5 PO; +HYDR-3713 PO; +OXYB5TAB10 PO; +PYRI1TAB5 PO
[2021-02-20 13:33] LABS: HEMATOCRIT 28.6 % (36.0-47.0); HEMOGLOBIN 8.4 g/dl (12.0-15.5); MEAN CORPUSCULAR HEMOGLOBIN 24.3 pg (27.0-33.0); MEAN CORPUSCULAR HGB CONC 29.4 g/dl (32.0-36.5); MEAN CORPUSCULAR VOLUME 82.7 fl (80.0-96.0); PLATELET COUNT, AUTOMATED 269 10^3/uL (150-450); RED BLOOD COUNT 3.46 10^6/uL (4.00-5.40); WHITE BLOOD COUNT 12.5 10^3/uL (4.0-10.0)
[2021-02-20 13:44] LABS: INR 1.4; PROTHROMBIN TIME 17.6 SECONDS (12.7-14.5)
[2021-02-20 13:45] LABS: PARTIAL THROMBOPLASTIN TIME 36.8 SECONDS (25.9-37.0)
[2021-02-20 13:58] LABS: CALCIUM LEVEL 8.5 MG/DL (8.8-10.2); CREATININE FOR GFR 1.06 MG/DL (0.55-1.30); GLOMERULAR FILTRATION RATE 53.2 (>39); POTASSIUM SERUM 4.9 MEQ/L (3.5-5.1)
[2021-02-20 14:03] LABS: HYALINE CAST, URINE NONE SEEN /lpf (0-1); RBC, URINE TNTC /hpf (0-3); SQUAMOUS EPITHELIAL CELL URINE SMALL AMOUNT /hpf (SMALL AMT)
[2021-02-20 14:04] LABS: BACTERIA, URINE SMALL AMOUNT
== END ==
LOC: M PLALAB 09:17
PROVIDERS: ATTEND Specialist
DX: R31.0 Gross hematuria (principal)
CPT/HCPCS: 36415; 51798; 80048; 85027; 85610; 85730; 87086; G0463

== ENCOUNTER 2021-02-25 14:18 | Outpatient (CLI) | payer MEDICARE ==
[2021-02-25] VITALS (12 sets, daily range): BP systolic 127–182; BP diastolic 45–91
[~2021-02-25] VITALS: Ht 157.5 cm; Wt 71.4 kg
== END 2021-02-25 23:40 | disposition home or self-care (01) ==
LOC: M INFU 14:18
PROVIDERS: ATTEND Specialist
DX: D50.0 Iron deficiency anemia secondary to blood loss (chronic) (principal); R31.0 Gross hematuria; Z88.0 Allergy status to penicillin
CPT/HCPCS: 36430; 86850; 86900; 86901; 86920; P9016

== ENCOUNTER → 2021-02-25 | Outpatient (CLI) | payer MEDICARE ==
[~2021-02-25] MED LIST changes: -BACT800T5 PO; -HYDR-3713 PO; -OXYB5TAB10 PO; -PYRI1TAB5 PO
[2021-02-25 11:00] LABS: HEMATOCRIT 26.6 % (36.0-47.0); HEMOGLOBIN 7.9 g/dl (12.0-15.5)
== END ==
LOC: M LAB 09:59
PROVIDERS: ATTEND Specialist
DX: R31.0 Gross hematuria (principal)

== ENCOUNTER → 2021-02-27 | Outpatient (REF) | payer MEDICARE ==
[2021-02-27 13:00] LABS: HEMATOCRIT 33.6 % (36.0-47.0); HEMOGLOBIN 10.1 g/dl (12.0-15.5); MEAN CORPUSCULAR HEMOGLOBIN 24.9 pg (27.0-33.0); MEAN CORPUSCULAR HGB CONC 30.1 g/dl (32.0-36.5); MEAN CORPUSCULAR VOLUME 82.8 fl (80.0-96.0); PLATELET COUNT, AUTOMATED 246 10^3/uL (150-450); RED BLOOD COUNT 4.06 10^6/uL (4.00-5.40)
== END ==
LOC: M SFHCADAM 09:26
PROVIDERS: ATTEND Family Medicine
DX: D64.9 Anemia, unspecified (principal)

== ENCOUNTER → 2021-03-02 | Outpatient (REF) | payer MEDICARE ==
[2021-03-02 12:37] LABS: HEMOGLOBIN 9.9 g/dl (12.0-15.5)
== END ==
LOC: M SFHCADAM 08:22
PROVIDERS: ATTEND Family Medicine
DX: D64.9 Anemia, unspecified (principal)

== ENCOUNTER → 2021-03-02 | Outpatient (CLI) | payer MEDICARE ==
[~2021-03-02] MED LIST changes: +ISOVUE-370 76% 100ML VIAL As Ordered ONE
--- NOTE | 2021-03-02 17:21 | REP ---
INDICATION: GROSS HEMATURIA. COMPARISON: 01/02/2020 TECHNIQUE: Standard helical technique before and after the administration of intravenous contrast. 100 cc Isovue 370 was administered. FINDINGS: There are chronic lung base changes status quo The liver, spleen, pancreas, adrenal glands, and kidneys are unchanged. There are multiple bilateral renal cysts status quo. Heavily calcified atherosclerotic changes seen involving the abdominal aorta. Limited evaluation of the bowel loops and the mesenteries show no significant changes. There is advanced diverticulosis of the descending and particularly sigmoid colon status quo. There is no evidence of free fluid or free air. 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 There is a new enhancing mass along the posterior wall of the urinary bladder. This measures approximately 3.8 by 2.[address] urogram shows incomplete opacification of the renal collecting system bilaterally with a persistent filling defect in the urinary bladder Bone window technique throughout the exam shows chronic osseous changes status quo. IMPRESSION: 1. There is a new urinary bladder mass as described above consistent with neoplasm. 2. Other findings and chronic changes as described above. <Electronically signed by Fawad Bowen > 03/02/21 [id number]
== END ==
LOC: M RAD 16:08
PROVIDERS: ATTEND Specialist
DX: R31.0 Gross hematuria (principal)
CPT/HCPCS: 74178; Q9967

== ENCOUNTER → 2021-03-07 | Outpatient (CLI) | payer MEDICARE ==
[~2021-03-07] MED LIST changes: -ISOVUE-370 76% 100ML VIAL As Ordered ONE
== END ==
LOC: M LABSMTC 10:32
PROVIDERS: ATTEND Anesthesiology
DX: Z20.828 Contact with and (suspected) exposure to other viral communicable diseases (principal); Z11.59 Encounter for screening for other viral diseases

== ENCOUNTER → 2021-03-10 | Outpatient (REF) | payer MEDICARE ==
[~2021-03-10] MED LIST changes: +BACT800T5 PO; +HYDR-3713 PO; +OXYB5TAB10 PO; +PYRI1TAB5 PO
[2021-03-10 13:08] LABS: HEMOGLOBIN 9.9 g/dl (12.0-15.5)
== END ==
LOC: M SFHCADAM 12:47
PROVIDERS: ATTEND Specialist
DX: D64.9 Anemia, unspecified (principal)

== ENCOUNTER 2021-03-12 13:30 | Day surgery (SDC) | payer MEDICARE ==
[~2021-03-12] VITALS: Ht 160 cm; Wt 70.7 kg
[~2021-03-12 13:30] MED LIST changes: -BACT800T5 PO; -HYDR-3713 PO; +LR 1,000 ML IV ONE; -OXYB5TAB10 PO; -PYRI1TAB5 PO; +TRIMETHOPRIM/SULFAMETHOXAZOLE 160 MG in D5W 250 ML IV ONE
[2021-03-12] MEDS ORDERED: mitoMYcin 40MG VIAL *UROLOGY* (J9280 PER 5MG) INTRAVESIC ONE (15:00)
--- NOTE | 2021-03-12 16:55 | ROOPDOC ---
[facility] Report Of Operation Report of Operation DATE OF PROCEDURE: 03/12/21 PREPROCEDURE DIAGNOSES: [bladder tumor]. POSTPROCEDURE DIAGNOSES: [same]. PROCEDURE PERFORMED: [cysto left stent turbt >5cm and catheter placement]. SURGEON: [tony reyes, LOG LOADER: [none], ANESTHESIA: [general]. ESTIMATED BLOOD LOSS: Approximately [1] mL. COMPLICATIONS: [none]. REMARKS: [80yo wf. Gross hematuria prompted cystoscopy. Tumor near left uo found. Turbt arranged. No guarantees given. Risks discussed including infection, pain, bleeding, scarring, injury to bladder including peforation, recurrence of tumor and others. Informed consent obtained.]. 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 DESCRIPTION OF PROCEDURE: [ Met with pt in preop area and surgery discussed. Questions answered. Pt wished to proceed. Pt brought to OR room. Dorsal litho position. Well padded. General anesthesia secured. Prep'd and draped in sterile fashion. Time out performed. Resectoscope sheath advanced into bladder with help from its obturator and scope then assembled. Bladder inspected. Meaty, solid tumor just beyond left uo on floor of bladder. Large, >5cm. Papillary fronds noted coming from left uo. Decision made to place left stent before resection. Resectoscope removed and cystoscope then passed into bladder. Left stent placed using Seldinger technique, 6fr multilength. Resectoscope then used. Turbt performed, >5cm. Tumor meaty. I resected enough tissue to prove muscle invasion, I believe. I didn't attempt to remove all tumor because such is impossible. I resected tumor until more or less flush with surrounding bladder. Tissue collected using alexandria syringe and handed off. I resected left uo. Hemostasis secured with button. Once satisfied, 20fr catheter placed. Pt left room in satisfactory condition. I did a bimanual. I believe I felt a mass but it isn't fixed. Cervix present. Home with catheter, Bactrim, oxybutynin, Pyridium and hydrocodone/acet. Spoke with granddaughter on phone.]. RANCHO REYES MD Mar 12, 2021 16:55
[2021-03-12] MEDS ORDERED: fentaNYL 100 MCG/2 ML INJECTION (J3010) As Ordered ONE (17:42)
[2021-03-12] MEDS ORDERED: propofoL 200 MG/20 ML VIAL As Ordered ONE (17:42)
[2021-03-12] MEDS ORDERED: LIDOCAINE 2% 100MG/5ML SDV (FOR ANES.) As Ordered ONE (17:42)
[2021-03-12] MEDS ORDERED: MIDAZOLAM INJ 2MG/2ML VIAL (J2250 PER 1MG) As Ordered ONE (17:42)
[2021-03-12] MEDS ORDERED: GLYCOPYRROLATE INJ 0.2 MG/ML 2 ML VIAL As Ordered ONE (18:12)
[2021-03-12] MEDS ORDERED: dexameTHASONE 4 MG/ML 1ML VIAL (J1100 PER 1MG) As Ordered ONE (18:13)
[2021-03-12] MEDS ORDERED: ONDANSETRON 4MG/2ML VIAL As Ordered ONE (18:13)
[2021-03-12] MEDS ORDERED: ACETAMINOPHEN 1000MG 100ML IV BTL (OFIRMEV) (J0131 PER 10MG) As Ordered ONE (18:15)
[2021-03-12] MEDS ORDERED: ePHEDrine SULFATE 25 MG/5 ML(5MG/ML) SYRINGE As Ordered ONE (18:15)
--- NOTE | 2021-03-12 18:55 | ROOPDOC ---
[facility] Report Of Operation Report of Operation DATE OF PROCEDURE: 03/12/21 PREPROCEDURE DIAGNOSES: . POSTPROCEDURE DIAGNOSES: . PROCEDURE PERFORMED: . SURGEON: MD MANUFACTURING COORDINATOR: , ANESTHESIA: . ESTIMATED BLOOD LOSS: Approximately mL. COMPLICATIONS: . REMARKS: . FINDINGS: SPECIMENS REMOVED: PROCEDURE NOTE: . DESCRIPTION OF PROCEDURE: . RANCHO REYES MD Mar 12, 2021 18:55
[2021-03-12] MEDS ORDERED: BACT800T5 PO (18:59)
[2021-03-12] MEDS ORDERED: HYDR-3713 PO (18:59)
[2021-03-12] MEDS ORDERED: OXYB5TAB10 PO (18:59)
[2021-03-12] MEDS ORDERED: PYRI1TAB5 PO (18:59)
[2021-03-12] MEDS ORDERED: fentaNYL 100 MCG/2 ML INJECTION (J3010) IV PRN (19:10)
[2021-03-12] MEDS ORDERED: PERCOCET 5MG/325MG TAB PO PRN (19:10)
[2021-03-12] MEDS ORDERED: ONDANSETRON 4MG/2ML VIAL IV PRN (19:10)
[2021-03-12] MEDS ORDERED: LR 1,000 ML IV SCH (19:10)
[2021-03-12] MEDS ORDERED: METOCLOPRAMIDE INJ 10MG/2ML VIAL (J2765 PER 1) IV PRN (19:10)
[2021-03-12 20:55] VITALS: BP 147/66
== END 2021-03-12 21:03 | disposition home or self-care (01) ==
LOC: M SDC 13:30
PROVIDERS: ATTEND Urology
DX: C67.9 Malignant neoplasm of bladder, unspecified (principal); I10 Essential (primary) hypertension; I25.10 Atherosclerotic heart disease of native coronary artery without angina pectoris; E78.5 Hyperlipidemia, unspecified; J44.9 Chronic obstructive pulmonary disease, unspecified; Z79.01 Long term (current) use of anticoagulants; Z88.0 Allergy status to penicillin; Z88.8 Allergy status to other drugs, medicaments and biological substances; Z95.828 Presence of other vascular implants and grafts
CPT/HCPCS: 52235; 52332; 88307; C1769; C2617; J0131; J1100; J2250; J2405; J3010

== ENCOUNTER → 2021-04-06 | Outpatient (REF) | payer MEDICARE ==
[~2021-04-06] MED LIST changes: +BACT800T5 PO; +HYDR-3713 PO; -LR 1,000 ML IV ONE; +OXYB5TAB10 PO; +PYRI1TAB5 PO; -TRIMETHOPRIM/SULFAMETHOXAZOLE 160 MG in D5W 250 ML IV ONE
[2021-04-06 18:52] LABS: APPEARANCE, URINE TURBID (CLEAR); BACTERIA, URINE AUTO 2+ (NEGATIVE); BILIRUBIN, URINE AUTO NEGATIVE (NEGATIVE); BLOOD, URINE BLOOD 3+ (NEGATIVE); COLOR, URINE YELLOW (YELLOW); GLUCOSE, URINE (UA) AUTO NEGATIVE (NEGATIVE); KETONE, URINE AUTO NEGATIVE (NEGATIVE); LEUKOCYTE ESTERASE, URINE AUTO 3+ (NEGATIVE); NITRITE, URINE AUTO POSITIVE (NEGATIVE); PROTEIN, URINE AUTO 2+ mg/dL (NEGATIVE); RBC, URINE AUTO TNTC /HPF (0-3); SPECIFIC GRAVITY URINE AUTO 1.012 (1.002-1.035); SQUAMOUS EPITHELIAL CELL UR AU 0 /HPF (0-6); UROBILINOGEN, URINE AUTO 0.2 mg/dL (0.0-2.0); WBC, URINE AUTO TNTC /HPF (0-3)
== END ==
LOC: M SFHCADAM 13:28
PROVIDERS: ATTEND Urology
DX: R30.0 Dysuria (principal)

== ENCOUNTER → 2021-05-11 | Outpatient (CLI) | payer MEDICARE ==
--- NOTE | 2021-05-12 10:35 | REP ---
INDICATION: INITIAL BLADDER CANCER. COMPARISON: NO PRIOR PET CTS FOR COMPARISON. PREVIOUS CT SCAN OF THE ABDOMEN AND PELVIS 03/02/2021 REVIEWED. TECHNIQUE: After the intravenous administration of 8.59 mCi of FDG 18 triplane whole-body PET-CT was performed from the skull base to the mid thigh. FINDINGS: There is no abnormal hypermetabolic activity seen in the neck, chest, abdomen, or pelvis. There is evidence of diffuse thoracic and abdominal aortic ectasia and calcific atherosclerotic change. IMPRESSION: 1. No abnormal hypermetabolism is identified. 2. Thoracic and abdominal aorta as described above and for which contrast-enhanced CTA is recommended. <Electronically signed by Fawad Bowen > 05/12/21 [id number]
== END ==
LOC: M PLARAD 13:17
PROVIDERS: ATTEND Specialist
DX: C67.8 Malignant neoplasm of overlapping sites of bladder (principal)
CPT/HCPCS: 78815; A9552

== ENCOUNTER → 2021-06-08 | Outpatient (REF) | payer MEDICARE ==
[~2021-06-08] MED LIST changes: +ASPI1CHW3 PO; +CIPR500T39 PO; +OMEP-218 PO; +ONDA-83 PO; +SENN-80 PO
[2021-06-08 12:43] LABS: AMORPHOUS SEDIMENT SMALL (NEGATIVE); APPEARANCE, URINE TURBID (CLEAR); BACTERIA, URINE AUTO 2+ (NEGATIVE); BILIRUBIN, URINE AUTO NEGATIVE (NEGATIVE); BLOOD, URINE BLOOD 3+ (NEGATIVE); COLOR, URINE YELLOW (YELLOW); GLUCOSE, URINE (UA) AUTO NEGATIVE (NEGATIVE); KETONE, URINE AUTO NEGATIVE (NEGATIVE); LEUKOCYTE ESTERASE, URINE AUTO 3+ (NEGATIVE); MUCUS, URINE SMALL (NEGATIVE); NITRITE, URINE AUTO POSITIVE (NEGATIVE); PROTEIN, URINE AUTO 1+ mg/dL (NEGATIVE); RBC, URINE AUTO 142 /HPF (0-3); SPECIFIC GRAVITY URINE AUTO 1.015 (1.002-1.035); SQUAMOUS EPITHELIAL CELL UR AU 2 /HPF (0-6); TRANSITIONAL EPITHELIAL AUTO 1 /HPF; UROBILINOGEN, URINE AUTO 0.2 mg/dL (0.0-2.0); WBC, URINE AUTO TNTC /HPF (0-3)
== END ==
LOC: M LAB REF 12:22
PROVIDERS: ATTEND Internal Medicine
DX: Z01.818 Encounter for other preprocedural examination (principal); C67.9 Malignant neoplasm of bladder, unspecified

== ENCOUNTER 2021-06-09 11:32 | Inpatient (IN) | payer MEDICARE ==
[~2021-06-09] VITALS: Ht 157.5 cm; Wt 63.8 kg
[~2021-06-09 11:32] MED LIST changes: -ASPI1CHW3 PO; -CIPR500T39 PO; +LOSA100T45 PO; -LOSA100T50 PO; +LOSA50TA28 PO; -LOSA50TA88 PO; -OMEP-218 PO; -ONDA-83 PO; -SENN-80 PO
[2021-06-09] MEDS ORDERED: ONDA-83 PO (11:46)
[2021-06-09] MEDS ORDERED: OMEP-173 PO (11:46)
[2021-06-09] MEDS ORDERED: CIPR500T39 PO (11:46)
[2021-06-09] MEDS ORDERED: ASPI1CHW3 PO (11:46)
[2021-06-09] MEDS ORDERED: NS 1,000 ML IV SCH (12:15)
[2021-06-09] MEDS ORDERED: METOPROLOL TART 25 MG TABLET PO ONE (12:15)
[2021-06-09] MEDS ORDERED: ASPIRIN 81 MG CHEW TABLET PO ONE (12:15)
[2021-06-09] MEDS: METOPROLOL 5 MG/5 ML VIAL IV SCH ×3 (12:20→12:36)
[2021-06-09 12:41] LABS: BASO # 0.1 10^3/uL (0.0-0.2); BASO % 0.7 % (0.0-1.0); EOS # 0.1 10^3/uL (0.0-0.5); EOS % 0.4 % (0.0-3.0); HEMATOCRIT 28.3 % (36.0-47.0); HEMOGLOBIN 8.6 g/dl (12.0-15.5); LYMPH # 1.8 10^3/uL (1.5-5.0); LYMPH % 14.2 % (24.0-44.0); MEAN CORPUSCULAR HEMOGLOBIN 25.3 pg (27.0-33.0); MEAN CORPUSCULAR HGB CONC 30.4 g/dl (32.0-36.5); MEAN CORPUSCULAR VOLUME 83.2 fl (80.0-96.0); MONO # 0.8 10^3/uL (0.0-0.8); MONO % 6.1 % (2.0-8.0); NEUTROPHILS # 10.1 10^3/uL (1.5-8.5); PLATELET COUNT, AUTOMATED 491 10^3/uL (150-450); WHITE BLOOD COUNT 12.9 10^3/uL (4.0-10.0)
[2021-06-09] MEDS ORDERED: ELIQ5TAB PO (13:08)
[2021-06-09] MEDS ORDERED: SENN-80 PO (13:08)
[2021-06-09] MEDS ORDERED: HOME MED LIST COMPLETE! XX SCH (13:10)
[2021-06-09 13:57] LABS: RSV AMPLIFICATION NEGATIVE (NEGATIVE)
[2021-06-09 14:08] LABS: CK-MB VALUE MASS 1.2 NG/ML (<3.6)
[2021-06-09 14:11] LABS: ALBUMIN 2.1 GM/DL (3.2-5.2); BILIRUBIN,DIRECT 0.3 MG/DL (0.0-0.2); BILIRUBIN,TOTAL 0.4 MG/DL (0.2-1.0); CREATININE FOR GFR 1.14 MG/DL (0.55-1.30); GLOMERULAR FILTRATION RATE 48.9 (>39); POTASSIUM SERUM 4.8 MEQ/L (3.5-5.1); TOTAL PROTEIN 6.9 GM/DL (6.4-8.2)
[2021-06-09] MEDS ORDERED: ISOVUE-370 76% 100ML VIAL As Ordered ONE (15:03)
[2021-06-09] MEDS ORDERED: LEVALBUTEROL 1.25 MG/0.5 ML CONCENTRATE NEB INH PRN (16:00)
[2021-06-09] MEDS: LEVALBUTEROL 1.25 MG/0.5 ML CONCENTRATE NEB INH SCH ×2 (18:43→20:00)
[2021-06-09] MEDS ORDERED: TOLVAPTAN 7.5 MG HALF-TAB PO ONE (19:00)
[2021-06-09] MEDS ORDERED: FUROSEMIDE 40MG/4ML VIAL (J1940) IV ONE (19:00)
[2021-06-09 22:00] VITALS: BP 125/64
[2021-06-09] MEDS: ACETAMINOPHEN TAB 650MG DOSE (2X325MG) PO PRN (22:47)
[2021-06-09 22:49] VITALS: BP 116/59
[2021-06-09 23:05] VITALS: BP 110/56
[2021-06-09 23:35] VITALS: BP 112/66
[2021-06-10] VITALS (13 sets, daily range): BP systolic 105–124; BP diastolic 55–69
[2021-06-10 00:29] LABS: SODIUM,RANDOM URINE 61 MEQ/L
[2021-06-10 00:40] LABS: OSMOLALITY URINE 202 MOSM/KG (50-1400)
[2021-06-10 05:57] LABS: BASO # 0.1 10^3/uL (0.0-0.2); BASO % 0.7 % (0.0-1.0); EOS # 0.1 10^3/uL (0.0-0.5); HEMATOCRIT 30.9 % (36.0-47.0); HEMOGLOBIN 9.8 g/dl (12.0-15.5); LYMPH % 18.9 % (24.0-44.0); MEAN CORPUSCULAR HEMOGLOBIN 25.9 pg (27.0-33.0); MEAN CORPUSCULAR HGB CONC 31.7 g/dl (32.0-36.5); MEAN CORPUSCULAR VOLUME 81.7 fl (80.0-96.0); MONO # 0.9 10^3/uL (0.0-0.8); MONO % 8.3 % (2.0-8.0); NEUTROPHILS # 7.4 10^3/uL (1.5-8.5); NEUTROPHILS % 70.5 % (36.0-66.0); PLATELET COUNT, AUTOMATED 422 10^3/uL (150-450); RED BLOOD COUNT 3.78 10^6/uL (4.00-5.40); WHITE BLOOD COUNT 10.5 10^3/uL (4.0-10.0)
[2021-06-10 06:30] LABS: CALCIUM LEVEL 8.2 MG/DL (8.8-10.2); CREATININE FOR GFR 1.16 MG/DL (0.55-1.30); POTASSIUM SERUM 4.6 MEQ/L (3.5-5.1)
[2021-06-10] MEDS ORDERED: ALBUTEROL 90 MCG/ACT 8GM HFA INHALER INH PRN (07:20)
[2021-06-10] MEDS ORDERED: ONDANSETRON 4 MG TAB PO PRN (07:20)
[2021-06-10] MEDS: OMEPRAZOLE 20MG CAP PO SCH (07:47)
[2021-06-10] MEDS: MULTIVITAMINS/MINERALS THERAP 1 TAB PO SCH (07:47)
[2021-06-10] MEDS: EZETIMIBE 10MG TABLET (ZETIA) PO SCH (07:48)
[2021-06-10] MEDS ORDERED: FUROSEMIDE 40MG/4ML VIAL (J1940) IV ONE (08:00)
[2021-06-10] MEDS: METOPROLOL TART 12.5 MG PER 1/2 TAB PO SCH ×2 (09:00→20:59)
[2021-06-10] MEDS: SENNA 8.6 MG TAB (SENOKOT) PO SCH (09:00)
[2021-06-10] MEDS ORDERED: TOLVAPTAN 7.5 MG HALF-TAB PO ONE (09:00)
[2021-06-10] MEDS: LEVALBUTEROL 1.25 MG/0.5 ML CONCENTRATE NEB INH SCH ×3 (09:30→19:26)
[2021-06-10] MEDS: CIPROFLOXACIN 500MG TABLET PO SCH ×2 (10:08→18:06)
[2021-06-10 12:21] LABS: HEMATOCRIT 33.7 % (36.0-47.0); HEMOGLOBIN 10.6 g/dl (12.0-15.5)
[2021-06-10 12:49] LABS: CALCIUM LEVEL 8.3 MG/DL (8.8-10.2); CREATININE FOR GFR 1.25 MG/DL (0.55-1.30); POTASSIUM SERUM 4.8 MEQ/L (3.5-5.1)
[2021-06-10 18:29] LABS: HEMATOCRIT 33.8 % (36.0-47.0); HEMOGLOBIN 11.1 g/dl (12.0-15.5)
[2021-06-10 18:55] LABS: CREATININE FOR GFR 1.45 MG/DL (0.55-1.30); GLOMERULAR FILTRATION RATE 37.1 (>39); POTASSIUM SERUM 4.8 MEQ/L (3.5-5.1)
[2021-06-11] MEDS: ACETAMINOPHEN TAB 650MG DOSE (2X325MG) PO PRN (01:10)
[2021-06-11 04:00] VITALS: BP 108/60
[2021-06-11] MEDS: CIPROFLOXACIN 500MG TABLET PO SCH (05:36)
[2021-06-11 05:47] LABS: BASO # 0.1 10^3/uL (0.0-0.2); BASO % 0.5 % (0.0-1.0); EOS % 0.3 % (0.0-3.0); HEMATOCRIT 30.9 % (36.0-47.0); HEMOGLOBIN 10.1 g/dl (12.0-15.5); LYMPH # 1.9 10^3/uL (1.5-5.0); LYMPH % 13.6 % (24.0-44.0); MEAN CORPUSCULAR HEMOGLOBIN 26.6 pg (27.0-33.0); MEAN CORPUSCULAR HGB CONC 32.7 g/dl (32.0-36.5); MEAN CORPUSCULAR VOLUME 81.5 fl (80.0-96.0); MONO # 1.3 10^3/uL (0.0-0.8); MONO % 9.4 % (2.0-8.0); NEUTROPHILS # 10.4 10^3/uL (1.5-8.5); NEUTROPHILS % 75.4 % (36.0-66.0); PLATELET COUNT, AUTOMATED 372 10^3/uL (150-450); RED BLOOD COUNT 3.79 10^6/uL (4.00-5.40); WHITE BLOOD COUNT 13.8 10^3/uL (4.0-10.0)
[2021-06-11 06:10] LABS: CALCIUM LEVEL 8.1 MG/DL (8.8-10.2); CREATININE FOR GFR 1.24 MG/DL (0.55-1.30); GLOMERULAR FILTRATION RATE 44.4 (>39); POTASSIUM SERUM 4.3 MEQ/L (3.5-5.1)
[2021-06-11] MEDS: LEVALBUTEROL 1.25 MG/0.5 ML CONCENTRATE NEB INH SCH (07:13)
[2021-06-11 08:00] VITALS: BP 112/59
[2021-06-11] MEDS ORDERED: TOLVAPTAN 7.5 MG HALF-TAB PO ONE (09:00)
[2021-06-11 09:11] VITALS: BP 112/59
[2021-06-11] MEDS: EZETIMIBE 10MG TABLET (ZETIA) PO SCH (09:11)
[2021-06-11] MEDS: METOPROLOL TART 12.5 MG PER 1/2 TAB PO SCH (09:11)
[2021-06-11] MEDS: MULTIVITAMINS/MINERALS THERAP 1 TAB PO SCH (09:12)
[2021-06-11] MEDS: SENNA 8.6 MG TAB (SENOKOT) PO SCH (09:12)
[2021-06-11] MEDS: OMEPRAZOLE 20MG CAP PO SCH (09:12)
== END 2021-06-11 11:07 | disposition home health service (06) | DRG 811 ==
LOC: M ED 11:32 → M ED INP 14:53 → M PCU 21:58
PROVIDERS: ADMIT General Practice; ATTEND General Practice
PROC: 30233N1 Transfusion of Nonautologous Red Blood Cells into Peripheral Vein, Percutaneous Approach (ICD-10-PCS; principal; 2021-06-09)
DX: D64.9 Anemia, unspecified (principal); I50.23 Acute on chronic systolic (congestive) heart failure; E87.1 Hypo-osmolality and hyponatremia; I13.0 Hypertensive heart and chronic kidney disease with heart failure and stage 1 through stage 4 chronic kidney disease, or unspecified chronic kidney disease; C67.4 Malignant neoplasm of posterior wall of bladder; J44.9 Chronic obstructive pulmonary disease, unspecified; I25.10 Atherosclerotic heart disease of native coronary artery without angina pectoris; I27.20 Pulmonary hypertension, unspecified; I36.1 Nonrheumatic tricuspid (valve) insufficiency; I50.813 Acute on chronic right heart failure; I73.9 Peripheral vascular disease, unspecified; N18.30 Chronic kidney disease, stage 3 unspecified; Z98.41 Cataract extraction status, right eye; Z98.42 Cataract extraction status, left eye; Z95.1 Presence of aortocoronary bypass graft; Z87.891 Personal history of nicotine dependence; Z79.899 Other long term (current) drug therapy

== ENCOUNTER → 2021-07-22 | Outpatient (REF) | payer MEDICARE ==
[~2021-07-22] MED LIST changes: +ASPI1CHW3 PO; +CIPR500T39 PO; +OMEP-173 PO; +ONDA-83 PO; +SENN-80 PO
[2021-07-22 17:27] LABS: BACTERIA, URINE AUTO 1+ (NEGATIVE); RBC, URINE AUTO TNTC /HPF (0-3); SQUAMOUS EPITHELIAL CELL UR AU 3 /HPF (0-6); WBC, URINE AUTO TNTC /HPF (0-3)
== END ==
LOC: M LAB REF 16:45
PROVIDERS: ATTEND Internal Medicine
DX: N30.21 Other chronic cystitis with hematuria (principal); C67.9 Malignant neoplasm of bladder, unspecified

== ENCOUNTER 2021-08-18 19:28 | Inpatient (IN) | payer MEDICARE ==
[~2021-08-18] VITALS: Ht 157.5 cm; Wt 58.5 kg
[~2021-08-18 19:28] MED LIST changes: -ACET-907 PO; -ACET-910 PO; -ELIQ2.5T PO; -FERR325T18 PO; -MAGN400C PO; -MAGN400T2 PO; -METO50TA7 PO; -TORS20TA2 PO
[2021-08-18] MEDS ORDERED: ACET-910 PO (19:48)
[2021-08-18] MEDS ORDERED: MAGN400C PO (19:48)
[2021-08-18] MEDS ORDERED: ELIQ2.5T PO (19:48)
[2021-08-18 21:15] LABS: BASO # 0.1 10^3/uL (0.0-0.2); BASO % 0.4 % (0.0-1.0); EOS # 0.1 10^3/uL (0.0-0.5); EOS % 0.7 % (0.0-3.0); HEMATOCRIT 37.2 % (36.0-47.0); HEMOGLOBIN 11.4 g/dl (12.0-15.5); LYMPH # 2.3 10^3/uL (1.5-5.0); LYMPH % 12.7 % (24.0-44.0); MEAN CORPUSCULAR HEMOGLOBIN 27.9 pg (27.0-33.0); MEAN CORPUSCULAR HGB CONC 30.6 g/dl (32.0-36.5); MEAN CORPUSCULAR VOLUME 91.2 fl (80.0-96.0); MONO % 9.3 % (2.0-8.0); NEUTROPHILS # 13.9 10^3/uL (1.5-8.5); NEUTROPHILS % 76.3 % (36.0-66.0); PLATELET COUNT, AUTOMATED 220 10^3/uL (150-450); RED BLOOD COUNT 4.08 10^6/uL (4.00-5.40); WHITE BLOOD COUNT 18.2 10^3/uL (4.0-10.0)
[2021-08-18 21:48] LABS: MONO # 1.7 10^3/uL (0.0-0.8)
[2021-08-18 21:51] LABS: RSV AMPLIFICATION NEGATIVE (NEGATIVE)
[2021-08-18 22:03] LABS: ALBUMIN 2.6 GM/DL (3.2-5.2); BILIRUBIN,DIRECT 0.3 MG/DL (0.0-0.2); BILIRUBIN,TOTAL 0.5 MG/DL (0.2-1.0); CALCIUM LEVEL 11.9 MG/DL (8.8-10.2); CREATININE FOR GFR 1.57 MG/DL (0.55-1.30); GLOMERULAR FILTRATION RATE 33.7 (>32); POTASSIUM SERUM 4.3 MEQ/L (3.5-5.1); TOTAL PROTEIN 7.8 GM/DL (6.4-8.2)
[2021-08-18] MEDS ORDERED: NS 500 ML IV ONE (22:35)
[2021-08-18] MEDS ORDERED: cefTRIAXone SOD 2 GM in D5W MINI-BAG PLUS 50 ML IV ONE (22:35)
[2021-08-19] VITALS (8 sets, daily range): BP systolic 124–163; BP diastolic 62–85
[2021-08-19] MEDS ORDERED: NS 1,000 ML IV SCH ×2 (01:40→12:10)
[2021-08-19] MEDS ORDERED: METOPROLOL TART 25 MG TABLET PO ONE (01:40)
[2021-08-19] MEDS ORDERED: ELIQ2.5T PO (01:59)
[2021-08-19] MEDS ORDERED: IPRA3SP (01:59)
[2021-08-19] MEDS ORDERED: VITA100093 PO (01:59)
[2021-08-19] MEDS ORDERED: FERR325T18 PO (01:59)
[2021-08-19] MEDS ORDERED: ASPI-161 PO (01:59)
[2021-08-19] MEDS ORDERED: MAGN400T2 PO (01:59)
[2021-08-19] MEDS ORDERED: ACET-907 PO (01:59)
[2021-08-19] MEDS ORDERED: METO50TA7 PO (01:59)
[2021-08-19] MEDS ORDERED: TORS20TA2 PO (01:59)
[2021-08-19] MEDS ORDERED: HOME MED LIST COMPLETE! XX SCH (02:00)
[2021-08-19] MEDS ORDERED: ALBUTEROL 90 MCG/ACT 8GM HFA INHALER INH PRN (02:05)
[2021-08-19] MEDS: ACETAMINOPHEN TAB 650MG DOSE (2X325MG) PO PRN ×2 (04:17→12:17)
[2021-08-19 05:30] LABS: HEMATOCRIT 36.7 % (36.0-47.0); HEMOGLOBIN 11.3 g/dl (12.0-15.5); MEAN CORPUSCULAR HEMOGLOBIN 28.2 pg (27.0-33.0); MEAN CORPUSCULAR HGB CONC 30.8 g/dl (32.0-36.5); MEAN CORPUSCULAR VOLUME 91.5 fl (80.0-96.0); PLATELET COUNT, AUTOMATED 209 10^3/uL (150-450); RED BLOOD COUNT 4.01 10^6/uL (4.00-5.40); WHITE BLOOD COUNT 16.9 10^3/uL (4.0-10.0)
[2021-08-19 05:48] LABS: CALCIUM LEVEL 11.4 MG/DL (8.8-10.2); CREATININE FOR GFR 1.4 MG/DL (0.55-1.30); GLOMERULAR FILTRATION RATE 38.5 (>32); POTASSIUM SERUM 4.3 MEQ/L (3.5-5.1)
[2021-08-19] MEDS ORDERED: ceFAZolin SOD 1 GM in D5W MINI-BAG PLUS 50 ML IV SCH (06:00)
[2021-08-19] MEDS ORDERED: fentaNYL 100 MCG/2 ML INJECTION As Ordered ONE ×2 (07:22→09:59)
[2021-08-19] MEDS ORDERED: propofoL 200 MG/20 ML VIAL As Ordered ONE (07:22)
[2021-08-19] MEDS ORDERED: LIDOCAINE 2% 100MG/5ML SDV (FOR ANES.) As Ordered ONE (07:22)
[2021-08-19] MEDS ORDERED: CONRAY-60 60% 50ML VIAL (Q9961) As Ordered ONE ×2 (07:22→08:45)
[2021-08-19] MEDS ORDERED: ONDANSETRON 4MG/2ML VIAL As Ordered ONE (07:24)
[2021-08-19] MEDS ORDERED: dexameTHASONE 4 MG/ML 1ML VIAL (J1100 PER 1MG) As Ordered ONE (07:24)
[2021-08-19] MEDS ORDERED: LIDOCAINE 2% 5ML JELLY UROJET As Ordered ONE (07:44)
[2021-08-19] MEDS ORDERED: PHENYLephrine 500MCG 5ML (100MCG/ML) SYRINGE As Ordered ONE (08:05)
[2021-08-19] MEDS ORDERED: ESMOLOL INJ 100MG/10ML VIAL As Ordered ONE (08:13)
[2021-08-19] MEDS ORDERED: AMIODARONE HCL 150 MG/100 ML PREMIXED BAG (NEXTERONE) (J0282 PER 30MG) As Ordered ONE (08:13)
[2021-08-19] MEDS ORDERED: ATROPINE SULF 0.4 MG/ML 1ML VIAL (J0461) As Ordered ONE (08:23)
[2021-08-19] MEDS ORDERED: GLYCOPYRROLATE INJ 0.2 MG/ML 2 ML VIAL As Ordered ONE (08:27)
[2021-08-19] MEDS ORDERED: ATROPINE SULF 1MG/10ML SYRINGE (J0461) As Ordered ONE (08:27)
[2021-08-19] MEDS ORDERED: AMIODARONE HCL 150 MG in IV 1 EA IV ONE (09:00)
[2021-08-19] MEDS: ASPIRIN 81MG ENTERIC TABLET PO SCH (09:00)
[2021-08-19] MEDS ORDERED: LR 1,000 ML IV SCH (09:00)
[2021-08-19] MEDS ORDERED: fentaNYL 100 MCG/2 ML INJECTION IV PRN (09:00)
[2021-08-19] MEDS ORDERED: OMEPRAZOLE 20MG CAP PO SCH (09:00)
[2021-08-19] MEDS: TORSEMIDE 20 MG TAB PO SCH (09:00)
[2021-08-19] MEDS ORDERED: ONDANSETRON 4MG/2ML VIAL IV PRN ×2 (09:00→12:10)
[2021-08-19] MEDS ORDERED: diphenhydrAMINE 50MG/ML VIAL (J1200) As Ordered ONE (09:59)
[2021-08-19] MEDS ORDERED: MIDAZOLAM INJ 2MG/2ML VIAL (J2250 PER 1MG) As Ordered ONE (10:00)
[2021-08-19] MEDS ORDERED: LIDOCAINE 1% MDV 20ML VIAL As Ordered ONE (10:16)
[2021-08-19] MEDS ORDERED: ISOVUE-300 61% 50ML VIAL As Ordered ONE (10:28)
[2021-08-19] MEDS ORDERED: ceFAZolin 2 GM/D5W 50 ML IV BAG (J0690 PER 500MG) As Ordered ONE (10:38)
[2021-08-19] MEDS ORDERED: ceFAZolin SOD 2 GM in IV 1 EA IV ONE (11:00)
[2021-08-19] MEDS ORDERED: cefTRIAXone SOD 1 GM in D5W MINI-BAG PLUS 50 ML IV SCH (11:05)
[2021-08-19] MEDS ORDERED: PERCOCET 5MG/325MG TAB PO PRN ×2 (12:10→20:10)
[2021-08-19] MEDS ORDERED: HYDROMORPHONE HCL 0.5 MG/ 0.5 ML SYRINGE (J1170 PER 1) IV PRN (12:10)
[2021-08-19 13:08] LABS: CK-MB VALUE MASS < 1.0 NG/ML (<3.6); CPK CREATINE PHOSPHOKINASE 44 U/L (26-192); MB/CK RELATIVE INDEX 2.27 (< OR =4)
[2021-08-19 13:20] LABS: MAGNESIUM LEVEL 2.2 MG/DL (1.8-2.4)
[2021-08-19] MEDS: METOPROLOL TART 50 MG TAB PO SCH ×2 (14:07→21:00)
[2021-08-19] MEDS: EZETIMIBE 10MG TABLET (ZETIA) PO SCH (14:07)
[2021-08-19] MEDS ORDERED: FAMOTIDINE 40MG/5ML ORAL SUSPENSON 50ML BOTTLE PO SCH ×2 (16:30→21:00)
[2021-08-19] MEDS ORDERED: PILL CUTTER 1 EACH XX PRN (16:40)
[2021-08-19] MEDS: FAMOTIDINE 20 MG TAB PO SCH ×2 (16:47→20:00)
[2021-08-19] MEDS: amLODIPine 5 MG TAB PO SCH (16:47)
[2021-08-19] MEDS ORDERED: SENNA 8.6 MG TAB (SENOKOT) PO PRN (16:55)
[2021-08-19] MEDS ORDERED: FAMOTIDINE 20 MG TAB PO SCH ×2 (17:00→21:00)
[2021-08-19] MEDS ORDERED: ONDANSETRON 4 MG TAB PO PRN (17:05)
[2021-08-19 18:25] LABS: CK-MB VALUE MASS < 1.0 NG/ML (<3.6); CPK CREATINE PHOSPHOKINASE 27 U/L (26-192)
[2021-08-19 19:00] LABS: PTH INTACT < 6.3 PG/ML (18.5-88.0)
[2021-08-19] MEDS: APIXABAN 2.5 MG TAB (ELIQUIS) PO SCH (19:35)
[2021-08-19] MEDS: cefTRIAXone SOD 2 GM in D5W MINI-BAG PLUS 50 ML IV SCH (21:54)
[2021-08-20] VITALS: BP 140/67
[2021-08-20 00:35] LABS: CK-MB VALUE MASS < 1.0 NG/ML (<3.6); CPK CREATINE PHOSPHOKINASE 28 U/L (26-192); MB/CK RELATIVE INDEX 3.57 (< OR =4)
[2021-08-20 04:00] VITALS: BP 131/75
[2021-08-20 04:34] LABS: HEMATOCRIT 35.6 % (36.0-47.0); MEAN CORPUSCULAR HEMOGLOBIN 28.1 pg (27.0-33.0); MEAN CORPUSCULAR HGB CONC 30.9 g/dl (32.0-36.5); PLATELET COUNT, AUTOMATED 164 10^3/uL (150-450); RED BLOOD COUNT 3.91 10^6/uL (4.00-5.40); WHITE BLOOD COUNT 19.9 10^3/uL (4.0-10.0)
[2021-08-20 04:58] LABS: CK-MB VALUE MASS < 1.0 NG/ML (<3.6); CPK CREATINE PHOSPHOKINASE 21 U/L (26-192); MB/CK RELATIVE INDEX 4.76 (< OR =4)
[2021-08-20 05:15] LABS: CALCIUM LEVEL 10.9 MG/DL (8.8-10.2); CREATININE FOR GFR 1.3 MG/DL (0.55-1.30); POTASSIUM SERUM 5.1 MEQ/L (3.5-5.1)
[2021-08-20 08:00] VITALS: BP 123/84
[2021-08-20] MEDS: amLODIPine 5 MG TAB PO SCH (08:42)
[2021-08-20] MEDS: FAMOTIDINE 20 MG TAB PO SCH ×2 (08:43→20:20)
[2021-08-20] MEDS: ASPIRIN 81MG ENTERIC TABLET PO SCH (08:43)
[2021-08-20] MEDS: APIXABAN 2.5 MG TAB (ELIQUIS) PO SCH ×2 (08:43→20:20)
[2021-08-20] MEDS: METOPROLOL TART 50 MG TAB PO SCH (08:43)
[2021-08-20] MEDS: EZETIMIBE 10MG TABLET (ZETIA) PO SCH (08:43)
[2021-08-20 15:25] VITALS: BP 123/61
[2021-08-20 17:03] LABS: CALCIUM LEVEL 11.3 MG/DL (8.8-10.2); CREATININE FOR GFR 1.47 MG/DL (0.55-1.30); GLOMERULAR FILTRATION RATE 36.4 (>32); POTASSIUM SERUM 4.4 MEQ/L (3.5-5.1)
[2021-08-20 17:33] VITALS: BP 132/60
[2021-08-20] MEDS: cefTRIAXone SOD 2 GM in D5W MINI-BAG PLUS 50 ML IV SCH (20:20)
[2021-08-20 20:30] VITALS: BP 141/63
[2021-08-21 01:00] VITALS: BP 106/62
[2021-08-21 04:00] VITALS: BP 144/64
[2021-08-21 05:26] LABS: HEMATOCRIT 37.1 % (36.0-47.0); HEMOGLOBIN 11.4 g/dl (12.0-15.5); MEAN CORPUSCULAR HEMOGLOBIN 28.1 pg (27.0-33.0); MEAN CORPUSCULAR HGB CONC 30.7 g/dl (32.0-36.5); MEAN CORPUSCULAR VOLUME 91.4 fl (80.0-96.0); PLATELET COUNT, AUTOMATED 168 10^3/uL (150-450); RED BLOOD COUNT 4.06 10^6/uL (4.00-5.40)
[2021-08-21 05:40] LABS: CALCIUM LEVEL 11.4 MG/DL (8.8-10.2); CREATININE FOR GFR 1.27 MG/DL (0.55-1.30); GLOMERULAR FILTRATION RATE 43.1 (>32); POTASSIUM SERUM 4.6 MEQ/L (3.5-5.1)
[2021-08-21 08:12] VITALS: BP 163/70
[2021-08-21 08:15] VITALS: BP 151/68
[2021-08-21] MEDS: ASPIRIN 81MG ENTERIC TABLET PO SCH (08:16)
[2021-08-21] MEDS: TORSEMIDE 20 MG TAB PO SCH (08:16)
[2021-08-21 08:17] VITALS: BP 151/68
[2021-08-21] MEDS: amLODIPine 5 MG TAB PO SCH (08:17)
[2021-08-21] MEDS: EZETIMIBE 10MG TABLET (ZETIA) PO SCH (08:17)
[2021-08-21] MEDS: APIXABAN 2.5 MG TAB (ELIQUIS) PO SCH (08:17)
[2021-08-21] MEDS: FAMOTIDINE 20 MG TAB PO SCH (08:18)
[2021-08-21] MEDS: METOPROLOL TART 50 MG TAB PO SCH (09:48)
[2021-08-21 12:00] VITALS: BP 139/64
[2021-08-21] MEDS ORDERED: METO1TAB87 PO (12:11)
[2021-08-21] MEDS ORDERED: CEFD300C41 PO (12:21)
[2021-08-21] MEDS ORDERED: SLF IV (13:35)
== END 2021-08-21 14:02 | disposition home health service (06) | DRG 694 ==
LOC: M ED 19:28 → M ED INP 08-19 02:06 → M ICU 08-19 03:10
PROVIDERS: ADMIT Family Medicine; ATTEND Family Medicine
PROC: 0TJB8ZZ Inspection of Bladder, Via Natural or Artificial Opening Endoscopic (ICD-10-PCS; 2021-08-19)
PROC: 0T9130Z Drainage of Left Kidney with Drainage Device, Percutaneous Approach (ICD-10-PCS; principal; 2021-08-19 07:30)
DX: N13.1 Hydronephrosis with ureteral stricture, not elsewhere classified (principal); E87.1 Hypo-osmolality and hyponatremia; I13.0 Hypertensive heart and chronic kidney disease with heart failure and stage 1 through stage 4 chronic kidney disease, or unspecified chronic kidney disease; I48.92 Unspecified atrial flutter; I47.2 Ventricular tachycardia; I50.22 Chronic systolic (congestive) heart failure; I48.91 Unspecified atrial fibrillation; N18.30 Chronic kidney disease, stage 3 unspecified; J44.9 Chronic obstructive pulmonary disease, unspecified; C67.9 Malignant neoplasm of bladder, unspecified; N39.0 Urinary tract infection, site not specified; E78.5 Hyperlipidemia, unspecified; K21.9 Gastro-esophageal reflux disease without esophagitis; Z66 Do not resuscitate; Z20.822 Contact with and (suspected) exposure to COVID-19; Z79.01 Long term (current) use of anticoagulants; Z79.82 Long term (current) use of aspirin; Z79.899 Other long term (current) drug therapy; Z88.0 Allergy status to penicillin; Z88.8 Allergy status to other drugs, medicaments and biological substances; I25.10 Atherosclerotic heart disease of native coronary artery without angina pectoris; I73.9 Peripheral vascular disease, unspecified; I35.1 Nonrheumatic aortic (valve) insufficiency; I27.20 Pulmonary hypertension, unspecified; R32 Unspecified urinary incontinence; Z98.41 Cataract extraction status, right eye; Z98.42 Cataract extraction status, left eye; Z95.5 Presence of coronary angioplasty implant and graft; Z87.891 Personal history of nicotine dependence; N17.9 Acute kidney failure, unspecified; Z53.09 Procedure and treatment not carried out because of other contraindication

== ENCOUNTER → 2021-08-18 | Outpatient (REF) | payer MEDICARE ==
[~2021-08-18] MED LIST changes: +ACET-907 PO; +ACET-910 PO; -D31000TA2 PO; +ELIQ2.5T PO; +FERR325T18 PO; +MAGN400C PO; +MAGN400T2 PO; +METO50TA7 PO; +TORS20TA2 PO; +VITA100093 PO
== END ==
LOC: M LAB REF 16:27
PROVIDERS: ATTEND Internal Medicine
DX: R30.0 Dysuria (principal)

== ENCOUNTER → 2021-09-01 | Outpatient (POV) | payer MEDICARE ==
[~2021-09-01] VITALS: Ht 157.5 cm; Wt 62.2 kg
[~2021-09-01] MED LIST changes: +ACET-907 PO; +ACET-910 PO; +CEFD300C41 PO; +ELIQ2.5T PO; +FERR325T18 PO; +MAGN400C PO; +MAGN400T2 PO; +METO25TA4 PO; +METO50TA7 PO; +SLF IV; +TORS20TA2 PO
[2021-09-01 10:45] VITALS: BP 159/69
== END ==
LOC: M IRPOV 10:28
PROVIDERS: ATTEND Radiology Diagnostic Radiology
DX: N13.2 Hydronephrosis with renal and ureteral calculous obstruction (principal); Z48.816 Encounter for surgical aftercare following surgery on the genitourinary system; Z79.01 Long term (current) use of anticoagulants; Z88.0 Allergy status to penicillin; Z88.8 Allergy status to other drugs, medicaments and biological substances

== ENCOUNTER 2021-09-06 12:07 | Inpatient (IN) | payer MEDICARE ==
[~2021-09-06] VITALS: Ht 157.5 cm; Wt 55.5 kg
[~2021-09-06 12:07] MED LIST changes: -METO25TA4 PO
[2021-09-06 13:30] LABS: BASO # 0.1 10^3/uL (0.0-0.2); BASO % 0.6 % (0.0-1.0); EOS # 0.2 10^3/uL (0.0-0.5); EOS % 1.3 % (0.0-3.0); HEMATOCRIT 35.5 % (36.0-47.0); HEMOGLOBIN 10.7 g/dl (12.0-15.5); LYMPH # 2.1 10^3/uL (1.5-5.0); LYMPH % 11.8 % (24.0-44.0); MEAN CORPUSCULAR HEMOGLOBIN 27.8 pg (27.0-33.0); MEAN CORPUSCULAR HGB CONC 30.1 g/dl (32.0-36.5); MEAN CORPUSCULAR VOLUME 92.2 fl (80.0-96.0); MONO # 1.4 10^3/uL (0.0-0.8); MONO % 8.1 % (2.0-8.0); NEUTROPHILS # 13.9 10^3/uL (1.5-8.5); NEUTROPHILS % 77.8 % (36.0-66.0); PLATELET COUNT, AUTOMATED 254 10^3/uL (150-450); RED BLOOD COUNT 3.85 10^6/uL (4.00-5.40); WHITE BLOOD COUNT 17.9 10^3/uL (4.0-10.0)
[2021-09-06 13:40] LABS: INR 1.37; PROTHROMBIN TIME 17.3 SECONDS (12.7-14.5)
[2021-09-06 14:09] LABS: ALBUMIN 2.5 GM/DL (3.2-5.2); BILIRUBIN,DIRECT 0.2 MG/DL (0.0-0.2); BILIRUBIN,TOTAL 0.4 MG/DL (0.2-1.0); CREATININE FOR GFR 1.91 MG/DL (0.55-1.30); GLOMERULAR FILTRATION RATE 26.9 (>32); POTASSIUM SERUM 3.5 MEQ/L (3.5-5.1); TOTAL PROTEIN 7.7 GM/DL (6.4-8.2)
[2021-09-06 14:43] LABS: RSV AMPLIFICATION NEGATIVE (NEGATIVE)
[2021-09-06] MEDS ORDERED: cefTRIAXone SOD 1 GM in D5W MINI-BAG PLUS 50 ML IV ONE (14:50)
[2021-09-06] MEDS ORDERED: METO25TA4 PO (15:20)
[2021-09-06] MEDS ORDERED: ELIQ5TAB PO (15:20)
[2021-09-06] MEDS ORDERED: HOME MED LIST COMPLETE! XX SCH (15:25)
[2021-09-06] MEDS ORDERED: ALBUTEROL 90 MCG/ACT 8GM HFA INHALER INH PRN (16:05)
[2021-09-06] MEDS ORDERED: SENNA 8.6 MG TAB (SENOKOT) PO PRN (16:05)
[2021-09-06] MEDS ORDERED: IPRATROPIUM 0.03% NASAL SPRAY 30 ML (ATROVENT) PRN (16:05)
[2021-09-06] MEDS: ACETAMINOPHEN TAB 650MG DOSE (2X325MG) PO PRN (17:22)
[2021-09-06 20:15] VITALS: BP 155/68
[2021-09-06] MEDS: METOPROLOL TART 25 MG TABLET PO SCH (21:00)
[2021-09-06] MEDS: NS 1,000 ML IV SCH (21:06)
[2021-09-06] MEDS: APIXABAN 5 MG TAB (ELIQUIS) PO SCH (21:07)
[2021-09-06] MEDS: MAGNESIUM OXIDE 400MG TAB (MAG-OX) PO SCH (21:07)
[2021-09-07] VITALS (7 sets, daily range): BP systolic 147–170; BP diastolic 63–79
[2021-09-07] MEDS: ACETAMINOPHEN TAB 650MG DOSE (2X325MG) PO PRN ×2 (03:44→11:43)
[2021-09-07 06:41] LABS: HEMATOCRIT 37.8 % (36.0-47.0); HEMOGLOBIN 11.5 g/dl (12.0-15.5); MEAN CORPUSCULAR HGB CONC 30.4 g/dl (32.0-36.5); MEAN CORPUSCULAR VOLUME 92.2 fl (80.0-96.0); PLATELET COUNT, AUTOMATED 274 10^3/uL (150-450); WHITE BLOOD COUNT 19.8 10^3/uL (4.0-10.0)
[2021-09-07 07:27] LABS: CALCIUM LEVEL 12.9 MG/DL (8.8-10.2); CREATININE FOR GFR 1.49 MG/DL (0.55-1.30); GLOMERULAR FILTRATION RATE 35.8 (>32); MAGNESIUM LEVEL 2.4 MG/DL (1.8-2.4); POTASSIUM SERUM 3.4 MEQ/L (3.5-5.1)
[2021-09-07] MEDS ORDERED: POTASSIUM CHLORIDE 10MEQ SR TABLET PO ONE (08:50)
[2021-09-07] MEDS: EZETIMIBE 10MG TABLET (ZETIA) PO SCH (10:06)
[2021-09-07] MEDS: ASPIRIN 81MG ENTERIC TABLET PO SCH (10:06)
[2021-09-07] MEDS: MULTIVITAMINS/MINERALS THERAP 1 TAB PO SCH (10:06)
[2021-09-07] MEDS: OMEPRAZOLE 20MG CAP PO SCH (10:07)
[2021-09-07] MEDS: APIXABAN 5 MG TAB (ELIQUIS) PO SCH ×2 (10:07→20:12)
[2021-09-07] MEDS: METOPROLOL TART 25 MG TABLET PO SCH ×2 (10:07→20:12)
[2021-09-07] MEDS: FERROUS SULFATE 325MG TAB PO SCH (10:07)
[2021-09-07] MEDS: NS 1,000 ML IV SCH (10:09)
[2021-09-07] MEDS ORDERED: cefTRIAXone SOD 2 GM in D5W MINI-BAG PLUS 50 ML IV SCH (16:00)
[2021-09-07] MEDS: MAGNESIUM OXIDE 400MG TAB (MAG-OX) PO SCH (20:12)
[2021-09-07] MEDS ORDERED: LORazepam 2 MG/ML VIAL IV ONE (23:15)
[2021-09-08] VITALS: BP 148/80
[2021-09-08 04:00] VITALS: BP 160/78
[2021-09-08 05:48] LABS: HEMATOCRIT 37.5 % (36.0-47.0); HEMOGLOBIN 11.5 g/dl (12.0-15.5); MEAN CORPUSCULAR HEMOGLOBIN 27.9 pg (27.0-33.0); MEAN CORPUSCULAR HGB CONC 30.7 g/dl (32.0-36.5); PLATELET COUNT, AUTOMATED 323 10^3/uL (150-450); RED BLOOD COUNT 4.12 10^6/uL (4.00-5.40); WHITE BLOOD COUNT 29.5 10^3/uL (4.0-10.0)
[2021-09-08 06:14] LABS: CALCIUM LEVEL 14.1 MG/DL (8.8-10.2); CREATININE FOR GFR 1.62 MG/DL (0.55-1.30); GLOMERULAR FILTRATION RATE 32.5 (>32); POTASSIUM SERUM 4.2 MEQ/L (3.5-5.1)
[2021-09-08 08:22] VITALS: BP 162/80
[2021-09-08] MEDS: EZETIMIBE 10MG TABLET (ZETIA) PO SCH (09:00)
[2021-09-08] MEDS: APIXABAN 5 MG TAB (ELIQUIS) PO SCH (09:00)
[2021-09-08] MEDS: ASPIRIN 81MG ENTERIC TABLET PO SCH (09:00)
[2021-09-08] MEDS: METOPROLOL TART 25 MG TABLET PO SCH (09:00)
[2021-09-08] MEDS: MULTIVITAMINS/MINERALS THERAP 1 TAB PO SCH (09:00)
[2021-09-08] MEDS: FERROUS SULFATE 325MG TAB PO SCH (09:00)
[2021-09-08] MEDS: OMEPRAZOLE 20MG CAP PO SCH (09:00)
[2021-09-08] MEDS ORDERED: SCOPOLAMINE 1MG TRANSDERMAL PATCH TOP PRN (11:25)
[2021-09-08] MEDS ORDERED: ONDANSETRON 4MG/2ML VIAL IV PRN (11:25)
[2021-09-08] MEDS ORDERED: MORPHINE SULFATE IV SCH (13:00)
[2021-09-08] MEDS ORDERED: NS IV SCH (13:00)
[2021-09-08] MEDS ORDERED: EPIDURAL/PCA KEYS XX PRN (13:00)
[2021-09-08] MEDS ORDERED: MORPHINE SULF IN 0.9% NACL 100 MG in IV 1 EA IV SCH ×2 (13:00)
[2021-09-08] MEDS: MORPHINE 2 MG/ML 1ML VIAL (J2270) IV PRN ×3 (16:48→21:29)
[2021-09-09] MEDS: MORPHINE 2 MG/ML 1ML VIAL (J2270) IV PRN ×6 (03:16→21:20)
[2021-09-09] MEDS: LORazepam 2 MG/ML VIAL IV PRN ×2 (15:20→21:20)
[2021-09-09] MEDS ORDERED: LORazepam 2 MG/ML VIAL As Ordered ONE (21:17)
== END 2021-09-10 04:46 | disposition expired | DRG 686 ==
LOC: M ED 12:07 → M ED INP 16:05 → M PCU 20:13 → M MS5PR 09-08 17:48
PROVIDERS: ADMIT Internal Medicine; ATTEND Internal Medicine
DX: C67.9 Malignant neoplasm of bladder, unspecified (principal); G93.41 Metabolic encephalopathy; N17.9 Acute kidney failure, unspecified; I50.22 Chronic systolic (congestive) heart failure; I13.0 Hypertensive heart and chronic kidney disease with heart failure and stage 1 through stage 4 chronic kidney disease, or unspecified chronic kidney disease; I48.20 Chronic atrial fibrillation, unspecified; N39.0 Urinary tract infection, site not specified; I47.2 Ventricular tachycardia; N13.6 Pyonephrosis; N18.30 Chronic kidney disease, stage 3 unspecified; E78.5 Hyperlipidemia, unspecified; J44.9 Chronic obstructive pulmonary disease, unspecified; I49.01 Ventricular fibrillation; I25.5 Ischemic cardiomyopathy; Z51.5 Encounter for palliative care; Z66 Do not resuscitate; I27.20 Pulmonary hypertension, unspecified; E83.52 Hypercalcemia; D64.9 Anemia, unspecified; I07.1 Rheumatic tricuspid insufficiency; K21.9 Gastro-esophageal reflux disease without esophagitis; Z20.822 Contact with and (suspected) exposure to COVID-19; Z79.01 Long term (current) use of anticoagulants; Z79.82 Long term (current) use of aspirin; Z79.899 Other long term (current) drug therapy; Z88.0 Allergy status to penicillin; Z88.8 Allergy status to other drugs, medicaments and biological substances; Z96.0 Presence of urogenital implants